=== PATIENT | male | born 1955 | race African-American/Black ===

== ENCOUNTER → 2018-11-12 | Day surgery (SDC) | payer MEDICARE ==
[~2018-11-12] MED LIST: ACETAMINOPHEN650 MG RC; ATORVASTATIN CA20 MG PO; BRILINTA90 MG; FENTANYL CITRATE/PF 100MCG/2 ML INJ ONE; FLOMAX0.4 MG PO; FLUTICASONE PRO16 GM INH; GABAPENTIN300 MG PO; GLIMEPIRIDE2 MG PO; HYOSCYAMINE 0.125 MG TAB ONE; IBUPROFEN200 MG PO; LOSARTAN POTAS100 MG PO; METFORMIN HCL500 MG PO; METOPROLOL SUCC50 MG PO; MIDAZOLAM HCL 2 MG/2 ML VIAL ONE; NIFEDIPINE ER30 M1; PROPOFOL IV EMULSION 10 MG/ML 50 ML VIAL ONE; RANEXA500 MG PO; SPIRIVA18 MCG INH; TESTOSTERO200 MG/1 M PO
--- OUTSIDE RECORDS SUMMARY | 2018-11-12 06:20 | XMS REPORT | Continuity of Care Document ---
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 Name Role Phone [employer] Unavailable Unavailable Problems Problem Status Onset Date Classification Date Reported Comments Source LUMBAR Active 06/02/2018 [facility] UNK Active 05/03/2018 [facility] LUMBAR LAMINOTOMY Active 02/19/2018 [facility] Radiculopathy, lumbar region 01/21/2018 08/05/2018 [facility] DX: M54.16=RADICULOPATHY, LUMBAR REGION Active 12/20/2017 [facility] Tobacco abuse Active Diagnosis 06/13/2018 [facility] HTN , benign Active Diagnosis 10/11/2018 [facility] Dyslipidemia Active Diagnosis 10/11/2018 [facility] Other symptoms involving cardiovascular system Active Diagnosis 06/13/2018 [facility] Coronary artery disease, angina presence unspecified, unspecified vessel or lesion type, unspecified whether [place] or transplanted heart Active Problem 10/11/2018 [facility] S/P angioplasty with stent Active Diagnosis 10/11/2018 [facility] Chest pain, unspecified type Active Diagnosis 06/13/2018 [facility] Preoperative clearance Active Diagnosis 10/11/2018 [facility] Acute bacterial bronchitis Resolved Problem 10[facility]19[facility] Cardiac angina Active Problem 10/19/[facility] Chronic left-sided back pain Active Problem 10/19/2018 [facility] CAD (Confirmed) Active Problem 10/19/2018 [facility] Diabetes Active Problem 10/19/2018 [facility] COPD with chronic bronchitis(Confirmed) Active Problem 10/19/2018 [facility] Hyperlipidemia Active Problem 10/19/2018 [facility] HTN (Confirmed) Active Problem 10/19/2018 [facility] HTN (Confirmed) Active Problem 10/19/2018 [facility] Heart attack1 Resolved Problem 10/19/201805/2017 [facility] Cold Resolved Problem 10/19/2018 [facility] Poor circulation of extremity2 Active Problem 10/19/2018 left leg [facility] Simple obesity Active Problem 10/19/2018 [facility] Spinal stenosis, lumbar region without neurogenic claudication 08/05/2018 [facility] Other intervertebral disc degeneration, lumbar region 08/05/2018 [facility] Fusion of spine, lumbosacral region 08/05/2018 [facility] Medications Medication Details Route Status Patient Instructions Ordering Provider Order Date Source Losartan Potassium 1 tablet Orally Active 50 mg Orally Once a day Sandra 10/09/2018 [facility] Tylenol PO, 0 Refill(s) Active 09/07/2018 [facility] Senokot 2 tab, Route: PO, Dosing Weight 103.227, kg, Daily, Start date: 06/14/18 9:00:00 SLIDE MACHINE TENDER, Duration: 30 day, Stop date: 07/13/18 9:00:00 SLIDE MACHINE TENDER No Longer Active 06/14/2018 [facility] heparin sodium, porcine 2500 UNT/ML Injectable Solution 5,000 unit, Route: SUB-Q, Drug form: INJ, Q12H, Dosing Weight 103.227, kg, Start date: 06/14/18 8:00:00 SLIDE MACHINE TENDER, Duration: 30 day, Stop date: 07/13/18 21:00:00 SLIDE MACHINE TENDER No Longer Active 06/14/2018 [facility] Famotidine 20 MG Oral Tablet [Pepcid] 20 mg, 1 tab, Route: PO, Drug form: TAB, Q12H, Dosing Weight 103.227, kg, Start date: 06/13/18 21:00:00 SLIDE MACHINE TENDER, Duration: 30 day, Stop date: 07/13/18 9:00:00 SLIDE MACHINE TENDER Inactive 06/14/2018 [facility] Docusate Sodium 100 MG Oral Capsule [Colace] 100 mg, 1 cap, Route: PO, BID, Dosing Weight 103.227, kg, Start date: 06/13/18 17:00:00 SLIDE MACHINE TENDER, Duration: 30 day, Stop date: 07/13/18 9:00:00 SLIDE MACHINE TENDER Inactive 06/13/2018 [facility] Acetaminophen 325 MG / Hydrocodone Bitartrate 5 MG Oral Tablet 1 tab, PO, Q4H, PRN Pain, # 60 tab, 0 Refill(s), given to patient Active 06/13/2018 [facility] Zofran 4 mg, Route: IV, Drug form: INJ, Q8H, Dosing Weight 103.227, kg, PRN Nausea, Start date: 06/13/18 13:09:00 SLIDE MACHINE TENDER, Duration: 30 day, Stop date: 07/13/18 13:08:00 SLIDE MACHINE TENDER Inactive 06/13/2018 [facility] magnesium citrate 300 ml, Route: PO, Drug Form: LIQ, Dosing Weight 103.227, kg, ONCE, PRN Constipation, Start date: 06/13/18 13:09:00 SLIDE MACHINE TENDER Inactive 06/13/2018 [facility] Acetaminophen 325 MG / Hydrocodone Bitartrate 5 MG Oral Tablet 1 tab, Route: PO, Drug Form: TAB, Dosing Weight 103.227, kg, Q4H, PRN Pain, Start date: 06/13/18 13:09:00 SLIDE MACHINE TENDER, Duration: 30 day, Stop date: 07/13/18 13:08:00 SLIDE MACHINE TENDER Inactive 06/13/2018 [facility] Dilaudid 0.5 mg, Route: IV, Q3H, Dosing Weight 103.227, kg, PRN Pain, Start date: 06/13/18 13:09:00 SLIDE MACHINE TENDER, Duration: 30 day, Stop date: 07/13/18 13:08:00 SLIDE MACHINE TENDER Inactive 06/13/2018 [facility] Tylenol 650 mg, Route: PO, Drug form: TAB, Q4H, Dosing Weight 103.227, kg, PRN Pain, Start date: 06/13/18 13:09:00 SLIDE MACHINE TENDER, Duration: 30 day, Stop date: 07/13/18 13:08:00 SLIDE MACHINE TENDER Inactive 06/13/2018 [facility] Cefazolin 1 gm, Route: IVPB, Drug form: INJ, Q8H, Dosing Weight 103.227, kg, Start date: 06/13/18 13:09:00 SLIDE MACHINE TENDER, Duration: 3 doses or times, Stop date: 06/14/18 0:00:00 SLIDE MACHINE TENDER, ABX Indication: Surgical Prophylaxis Inactive 06/13/2018 [facility] Sodium Chloride 0.9% IV 1000 mL 1,000 mL, Rate: 75 ml/hr, Infuse over: 13.3 hr, Route: IV, Dosing Weight 103.227 kg, Total Volume: 1,000, Start date: 06/13/18 13:09:00 SLIDE MACHINE TENDER, Duration: 30 day, Stop date: 07/13/18 13:08:00 SLIDE MACHINE TENDER, 2.31, m2 Inactive 06/13/2018 [facility] metoclopramide (ANES) Route: IV, Drug form: INJ, ONCE, Stop date: 06/13/18 12:36:00 SLIDE MACHINE TENDER Inactive 06/13/2018 [facility] Hextend (ANES) 500 mL Route: IV, Drug Form: INJ, Start date: 06/13/18 12:17:00 SLIDE MACHINE TENDER, Stop date: 06/13/18 13:17:00 SLIDE MACHINE TENDER Inactive 06/13/2018 [facility] rocuronium (ANES) Route: IV, Drug form: INJ, ONCE, Stop date: 06/13/18 11:51:00 SLIDE MACHINE TENDER Inactive 06/13/2018 [facility] lidocaine (ANES) Route: IV, Drug form: INJ, ONCE, Stop date: 06/13/18 11:46:00 SLIDE MACHINE TENDER Inactive 06/13/2018 [facility] phenylephrine (ANES) Route: IV, Drug form: INJ, ONCE, Stop date: 06/13/18 11:46:00 SLIDE MACHINE TENDER Inactive 06/13/2018 [facility] propofol (ANES) Route: IV, Drug form: INJ, ONCE, Stop date: 06/13/18 11:46:00 SLIDE MACHINE TENDER Inactive 06/13/2018 [facility] fentaNYL (ANES) Route: IV, Drug form: INJ, ONCE, Stop date: 06/13/18 11:46:00 SLIDE MACHINE TENDER Inactive 06/13/2018 [facility] succinylcholine (ANES) Route: IV, Drug form: INJ, ONCE, Stop date: 06/13/18 11:46:00 SLIDE MACHINE TENDER Inactive 06/13/2018 [facility] ondansetron (ANES) Route: IV, Drug form: INJ, ONCE, Stop date: 06/13/18 11:46:00 SLIDE MACHINE TENDER Inactive 06/13/2018 [facility] midazolam (ANES) Route: IV, Drug form: SOLN, ONCE, Stop date: 06/13/18 11:46:00 SLIDE MACHINE TENDER Inactive 06/13/2018 [facility] acetaminophen (ANES) 10 mg Route: IV, Drug form: INJ, Start date: 06/13/18 11:23:00 SLIDE MACHINE TENDER, Stop date: 06/13/18 12:23:00 SLIDE MACHINE TENDER Inactive 06/13/2018 [facility] ceFAZolin (ANES) 1000 mg Route: IV, Drug form: INJ, Start date: 06/13/18 11:08:00 SLIDE MACHINE TENDER, Stop date: 06/13/18 12:08:00 SLIDE MACHINE TENDER Inactive 06/13/2018 [facility] Lactated Ringers Injection IV (ANES) 1000 mL Route: IV, Total Volume: 1,000, Start date: 06/13/18 10:40:00 SLIDE MACHINE TENDER, Stop date: 06/13/18 11:40:00 SLIDE MACHINE TENDER Inactive 06/13/2018 [facility] Calcium Chloride 0.0014 MEQ/ML / Potassium Chloride 0.004 MEQ/ML / Sodium Chloride 0.103 MEQ/ML / Sodium Lactate 0.028 MEQ/ML Injectable Solution 1,000 mL, Rate: 25 ml/hr, Infuse over: 40 hr, Route: IV, Dosing Weight 103.227 kg, Total Volume: 1,000, Start date: 06/13/18 8:36:00 SLIDE MACHINE TENDER, Duration: 1 day, Stop date: 06/14/18 8:35:00 SLIDE MACHINE TENDER, 2.31, m2 Inactive 06/13/2018 [facility] gabapentin PO, 0 Refill(s) Active 06/05/2018 [facility] Aspirin 81 MG Enteric Coated Tablet 81 mg=1 tab, PO, Daily, still taking-seeing heart doctor tomorrow, # 90 tab, 3 Refill(s) No Longer Active 06/05/2018 [facility] Ramipril PO, Daily, 0 Refill(s) Active 06/05/2018 [facility] Losartan PO, Daily, 0 Refill(s) Active 06/05/2018 [facility] tamsulosin 0.4 mg oral capsule 0.4 mg=1 cap, PO, Daily, # 30 cap, 0 Refill(s) Active 02/06/2018 [facility] 12 HR ranolazine 500 MG Extended Release Tablet [Ranexa] 500 mg=1 tab, PO, BID, # 60 tab, 0 Refill(s) Active 02/06/2018 [facility] ticagrelor 90 mg oral tablet 90 mg=1 tab, PO, BID, # 180 tab, 3 Refill(s) No Longer Active 02/06/2018 [facility] levocetirizine 5 mg oral tablet 5 mg=1 tab, PO, Bedtime, PRN as needed for allergy symptoms, # 30 tab, 0 Refill(s) Active 02/06/2018 [facility] Nitroglycerin 0.4 MG Sublingual Tablet 0.4 mg=1 tab, SL, Q5Min, PRN Chest pain, Give up to 3 doses. Call 911 if pain persists., # 100 tab, 0 Refill(s) Active 02/06/2018 [facility] metoprolol succinate 50 mg oral capsule, extended release 50 mg=1 cap, PO, Daily, 0 Refill(s) Active 02/06/2018 [facility] Nifedipine 10 MG Oral Capsule 10 mg=1 cap, PO, Daily, 0 Refill(s) Active 02/06/2018 [facility] atorvastatin 40 mg oral tablet 40 mg=1 tab, PO, Bedtime, # 30 tab, 0 Refill(s) Active 02/06/2018 [facility] metFORMIN 1000 mg oral tablet, extended release 1,000 mg=1 tab, PO, BID, # 60 tab, 0 Refill(s) Active 02/06/2018 [facility] Nitroglycerin 1 tablet 5 mins apart 3 max then call 911 Sublingual Active 0.4 MG Sublingual as needed Sandra 06/30/2017 [facility] Plavix 1 tablet Orally Active 75 MG Orally Once a day [facility] Lipitor 1 tablet Orally Active 40 MG Orally Once a day [facility] Lisinopril 1 tablet Orally Active 10 MG Orally Once a day [facility] Aspirin 1 tablet Orally Active 81 MG Orally Once a day [facility] Metoprolol Succinate ER 1 tablet Orally Active 25 MG Orally Once a day [facility] Metoprolol Succinate ER 1 tablet Orally Active 50 MG Orally Once a day [facility] Ranolazine 1 tablet NA Active 500 mg every 12 hr [facility] Breo Ellipta 1 puff Inhalation Active 100-25 MCG/INH Inhalation Once a day [facility] Ticagrelor 1 tablet Orally Active 90 MG Orally Twice a day [facility] Atorvastatin Calcium 1 tablet Orally Active 40 MG Orally Once a day [facility] NIFEdipine not defined NA Active 30 mg daily [facility] Ticagrelor 1 tablet Orally Active 90 MG Orally Twice a day [facility] Metformin HCl 1 tablet with a meal Orally Active 1000 mg Orally twice a day (bid) [facility] Gabapentin 1 capsule Orally Active 100 MG Orally Three times a day [facility] Losartan Potassium 1 tablet Orally Active 25 MG Orally Once a day [facility] Allergies, Adverse Reactions, Alerts Substance Category Reaction Severity Reaction type Status Date Reported Comments Source N.K.D.A. Adverse Reaction Info Not Available Adverse Reaction Active 11/22/2017 [facility] Lisonpril. Adverse Reaction Info Not Available Adverse Reaction Active 10/09/2018 [facility] lisinopril Assertion Drug allergy Active [facility] Immunizations No Data Provided for This Section Results Order Name Results Value Reference Range Date Interpretation Comments Source SPECIAL CHEMISTRY Hgb A1C 8.7 <=5.6 % 06/05/2018 [facility] BLOOD BANK RESULTS Antibody Scrn Negative (06/05/18 10:32 AM) 06/05/2018 [facility] BLOOD BANK RESULTS ABO/Rh O POS 06/05/2018 [facility] CHEM PANEL A/G Ratio 1.2 0.7 - 1.6 06/05/2018 [facility] CHEM PANEL Globulin 3.4 2.7 - 4.2 06/05/2018 [facility] CHEM PANEL AGAP 12.8 10.0 - 20.0 06/05/2018 [facility] CHEM PANEL B/C Ratio 11 6 - 25 06/05/2018 [facility] CHEM PANEL eGFR 76 06/05/2018 Result Comment: The eGFR is calculated using the CKD-EPI formula. In most young, healthy individuals the eGFR will be >90 mL/min/1.73m2. The eGFR declines with age. An eGFR of 60-89 may be normal in some populations, particularly the elderly, for whom the CKD-EPI formula has not been extensively validated. Use of the eGFR is not recommended in the following populations:

Individuals with unstable creatinine concentrations, including patients and those with serious co-morbid conditions.

Patients with extremes in muscle mass or diet.

The data above are obtained from the National Kidney Disease Education Program (NKDEP) which additionally recommends that when the eGFR is used in patients with extremes of body mass index for purposes of drug dosing, the eGFR should be multiplied by the estimated BMI. [facility] CHEM PANEL Bili Total 0.8 0.2 - 1.3 06/05/2018 [facility] CHEM PANEL AST 11 0 - 37 06/05/2018 [facility] CHEM PANEL Alk Phos 72 39 - 136 06/05/2018 [facility] CHEM PANEL ALT 20 0 - 65 06/05/2018 [facility] CHEM PANEL Total Protein 7.4 6.4 - 8.4 06/05/2018 [facility] CHEM PANEL Albumin Lvl 4.0 3.5 - 5.0 06/05/2018 [facility] CHEM PANEL Calcium Lvl 8.8 8.5 - 10.5 06/05/2018 [facility] CHEM PANEL CO2 24 24 - 32 06/05/2018 [facility] CHEM PANEL Potassium Lvl 3.8 3.5 - 5.1 06/05/2018 [facility] CHEM PANEL Chloride Lvl 109 95 - 109 06/05/2018 [facility] CHEM PANEL Sodium Lvl 142 135 - 145 06/05/2018 [facility] CHEM PANEL Creatinine Lvl 1.16 0.50 - 1.40 06/05/2018 [facility] CHEM PANEL Glucose Lvl 109 70 - 99 06/05/2018 [facility] CHEM PANEL BUN 13 7 - 22 06/05/2018 [facility] HEMATOLOGY Neutrophils # 5.5 1.5 - 8.1 06/05/2018 [facility] HEMATOLOGY Basophils 0.5 0.0 - 1.0 06/05/2018 [facility] HEMATOLOGY Eosinophils 1.5 0.0 - 4.0 06/05/2018 [facility] HEMATOLOGY Monocytes # 0.7 0.0 - 0.8 06/05/2018 [facility] HEMATOLOGY Lymphocytes # 2.1 1.0 - 5.5 06/05/2018 [facility] HEMATOLOGY Monocytes 8.2 2.0 - 12.0 06/05/2018 [facility] HEMATOLOGY Eosinophils # 0.1 0.0 - 0.5 06/05/2018 [facility] HEMATOLOGY Segs 65.2 45.0 - 75.0 06/05/2018 [facility] HEMATOLOGY Lymphocytes 24.6 20.0 - 40.0 06/05/2018 [facility] HEMATOLOGY PT 13.1 12.0 - 14.7 06/05/2018 [facility] HEMATOLOGY PTT 27.1 22.9 - 35.8 06/05/2018 [facility] HEMATOLOGY INR 1.01 0.85 - 1.17 06/05/2018 [facility] HEMATOLOGY Platelet 174 133 - 450 06/05/2018 [facility] HEMATOLOGY RDW 15.2 11.5 - 14.5 06/05/2018 [facility] HEMATOLOGY MPV 9.5 7.4 - 10.4 06/05/2018 [facility] HEMATOLOGY MCHC 33.5 32.0 - 36.0 06/05/2018 [facility] HEMATOLOGY MCH 28.7 27.0 - 31.0 06/05/2018 [facility] HEMATOLOGY MCV 85.7 80.0 - 94.0 06/05/2018 [facility] HEMATOLOGY Hct 36.5 42.0 - 54.0 06/05/2018 [facility] HEMATOLOGY Hgb 12.2 14.0 - 18.0 06/05/2018 [facility] HEMATOLOGY RBC 4.26 4.70 - 6.10 06/05/2018 [facility] HEMATOLOGY WBC 8.4 3.7 - 10.4 06/05/2018 [facility] Pathology Reports No Data Provided for This Section Diagnostic Reports Report Value Date Source Chest 2 views DX Clinical Indication: Coughing - preop exam Comparison: None FINDINGS: PA and lateral views the chest are submitted for interpretation. The lungs are clear and there are no effusions. There is no visible pneumothorax. The cardiomediastinal contours are within normal limits. There are no clinically significant osseous abnormalities noted. IMPRESSION: 1. No radiographic evidence of acute cardiopulmonary process. SL: [id number] 06/05/2018 [facility] Spine lumbar wo contrast MRI Study: Spine lumbar wo contrast MRI 01/16/2018 10:31 AM CDT Patient Name: YASMANY DEUTSCH MR: [id number] : 1955; Age: 62 years y/o Male Ordering Physician: Melly Miller MD Clinical Indication: - M54.16 Radiculpathy, lumbar region Comparison: None TECHNIQUE: Multiplanar T1, T2, and STIR weighted noncontrast MRI of the lumbar spine was performed on the 1.5 [place] magnet. FINDINGS: ALIGNMENT AND GENERAL ASSESSMENT: * Five lumbar type vertebral bodies are assumed for purpose of this dictation with conus medullaris termination above T12. * Sacralization of the L5 vertebral bodies noted. * STIR hyperintensity seen within the right L4 vertebral body and superior right L5 endplate. DISC SPACES: L1-L2: No significant disc protrusion, spinal canal narrowing, or neural foraminal narrowing. L2-L3: Mildly degenerated disc. Symmetric disc bulge and ligamentum flavum buckling without foraminal or canal stenosis. L3-L4: Mildly degenerated disc. Symmetric disc bulge and ligamentum flavum buckling with mild bilateral foraminal stenosis and moderate canal stenosis. Schmorl's node at the superior L3 endplate. L4-L5: Mildly degenerated disc. Symmetric disc bulge and ligamentum flavum buckling with severe canal stenosis and moderate bilateral foraminal stenosis L5-S1: No significant disc protrusion, spinal canal narrowing, or neural foraminal narrowing. IMPRESSION: 1. Severe degenerative canal stenosis and moderate bilateral foraminal stenosis at L4-L5. 2. Moderate degenerative canal stenosis and mild bilateral foraminal stenosis at L3-L4. 3. Edema within the L4 vertebral body, favored to be degenerative in nature. 4. Transitional vertebra at the lumbosacral junction. SL: [id number] 01/16/2018 [facility] Consultation Notes No Data Provided for This Section Discharge Summaries No Data Provided for This Section History and Physicals No Data Provided for This Section Vital Signs Vital Sign Value Date Comments Source Weight 226.8 10/09/2018 [facility] Heart Rate 74 10/09/2018 [facility] Diastolic (mm Hg) 82 10/09/2018 [facility] Systolic (mm Hg) 154 10/09/2018 [facility] Weight 100.909 09/07/2018 [facility] BMI Calculated 30.17 09/07/2018 [facility] Height 182.88 cm 09/07/2018 [facility] Systolic (mm Hg) 144 09/07/2018 [facility] Diastolic (mm Hg) 85 09/07/2018 [facility] Heart Rate 86 09/07/2018 [facility] Heart Rate 66 08/03/2018 [facility] Temperature Oral (F) 97.8 F 08/03/2018 [facility] Systolic (mm Hg) 117 08/03/2018 [facility] Diastolic (mm Hg) 75 08/03/2018 [facility] BMI Calculated 29.9 08/03/2018 [facility] Height 182.88 cm 08/03/2018 [facility] Weight 100 08/03/2018 [facility] BMI Calculated 29.63 07/03/2018 [facility] Weight 99.091 07/03/2018 [facility] Height 182.88 cm 07/03/2018 [facility] Temperature Oral (F) 98.0 F 07/03/2018 [facility] Heart Rate 87 07/03/2018 [facility] Systolic (mm Hg) 148 07/03/2018 [facility] Diastolic (mm Hg) 84 07/03/2018 [facility] Systolic (mm Hg) 135 06/13/2018 [facility] Diastolic (mm Hg) 67 06/13/2018 [facility] Respitory Rate 16 06/13/2018 [facility] Systolic (mm Hg) 123 06/13/2018 [facility] Diastolic (mm Hg) 69 06/13/2018 [facility] Respitory Rate 13 06/13/2018 [facility] Systolic (mm Hg) 123 06/13/2018 [facility] Diastolic (mm Hg) 69 06/13/2018 [facility] Respitory Rate 14 06/13/2018 [facility] Weight 227 06/11/2018 [facility] Heart Rate 73 06/11/2018 [facility] Diastolic (mm Hg) 79 06/11/2018 [facility] Systolic (mm Hg) 139 06/11/2018 [facility] Heart Rate 84 06/05/2018 [facility] Temperature Oral (F) 98.2 F 06/05/2018 [facility] BMI Calculated 30.86 06/05/2018 [facility] Weight 103.227 06/05/2018 [facility] Height 182.88 cm 06/05/2018 [facility] Weight 236.2 02/19/2018 [facility] Heart Rate 72 02/19/2018 [facility] Diastolic (mm Hg) 82 02/19/2018 [facility] Systolic (mm Hg) 136 02/19/2018 [facility] Height 182.88 cm 02/06/2018 [facility] BMI Calculated 31.74 02/06/2018 [facility] Weight 106.165 02/06/2018 [facility] Temperature Oral (F) 97.7 F 02/06/2018 [facility] Heart Rate 103 02/06/2018 [facility] Systolic (mm Hg) 122 02/06/2018 [facility] Diastolic (mm Hg) 81 02/06/2018 [facility] Weight 233 11/22/2017 [facility] Heart Rate 82 11/22/2017 [facility] Diastolic (mm Hg) 78 11/22/2017 [facility] Systolic (mm Hg) 132 11/22/2017 [facility] Weight 180 06/30/2017 [facility] Heart Rate 88 06/30/2017 [facility] Diastolic (mm Hg) 65 06/30/2017 [facility] Systolic (mm Hg) 143 06/30/2017 [facility] Weight 175 03/30/2017 [facility] Heart Rate 98 03/30/2017 [facility] Diastolic (mm Hg) 80 03/30/2017 [facility] Systolic (mm Hg) 150 03/30/2017 [facility] Encounters Location Location Details Encounter Type Encounter Number Reason For Visit Attending Provider ADM Date DC Date Status Source [facility] Outpatient [id number] Melly Miller 01/16/2018 01/17/2018 [facility] Phone Message [id number] 01/22/2018 01/24/2018 [facility] [id number] SHON BUSHIEH 02/06/2018 [facility] Outpatient [id number] Shon [facility] 02/06/2018 02/07/2018 [facility] Phone Message [id number] 02/26/2018 02/28/2018 [facility] [id number] Shon Crowderh 02/26/2018 02/26/2018 [facility] Outpatient [id number] SHON [facility] 03/05/2018 [facility] Pre[facility]Reg [id number] Shon Bushieh 03/05/2018 03/05/2018 [facility] Phone Message [id number] 03/30/2018 04/01/2018 [facility] Day Surgery [id number] Shon [facility] 06/13/2018 06/13/2018 [facility] Outpatient [id number] SHON [facility] 06/13/2018 [facility] Phone Message [id number] 06/28/2018 06/30/2018 [facility] Phone Message [id number] 06/28/2018 06/30/2018 [facility] [id number] TIGIST BLEVINS 07/03/2018 [facility] Outpatient [id number] Shon [facility] 07/03/2018 07/04/2018 [facility] [id number] BOSE 08/03/2018 [facility] Outpatient [id number] Shon [facility] 08/03/2018 08/04/2018 [facility] [id number] RAMIREZ 09/07/[address] [facility] [id number] Pepito English 09/07/2018 09/08/2018 [facility] Procedures Procedure Code Date Perfomer Comments Source Cardiac catheterization 84026429 [facility] Repair of ankle [id number] [facility] Cardiac catheterization [id number] [facility] Repair of ankle [id number] [facility] Assessment and Plan Assessment and Plan Date Source Extracted from:Title: Clinical Document Author: Shon Caldera MD Date: 06/13/18 Neurosurgery Discharge Summary Admit Date: 06/13/2018 Discharge Date: 06/13/2018 Diagnosis: LEFT L3-L4, L4-L5 lateral recess stenosis Procedure: LEFT L3-L4, L4-L5 laminotomy Surgeon: Werner Hospital Course: Patient admitted, underwent above procedure, tolerated well. Ambulated, urinated, tolerated oral POs, safe to discharge home in stable condition PE: Preop AFVSS IPs Q G AT [facility] R 5 5 5 5 5 L 4 4+ 5 4- 4- Postop AFVSS IPs Q G AT [facility] R 5 5 5 5 5 L 4 4+ 5 4- 4- c/d/i PLAN: Follow-up in [address] Caldera at [phone] 06/13/2018 [facility] Plan of Care No Data Provided for This Section Social History Social History Date Source Social History TypeResponse Substance Abuse Use: None. Alcohol Current, Frequency: 1-2 times per month. Smoking Status Former smoker; Type: Cigarettes; Ready to change: No; Concerns about tobacco use in household: No; Exposure to Tobacco Smoke None; Cigarette Smoking Last 365 Days No; Reg Smoking Cessation Counseling No1 entered on: 09/07/18 1Patient states he stopped smoking 05/201702/06/2018 [facility] Social History TypeResponse Substance Abuse Use: None. Alcohol Current, Frequency: 1-2 times per month. Smoking Status Former smoker; Type: Cigarettes; Ready to change: No; Concerns about tobacco use in household: No; Exposure to Tobacco Smoke None; Cigarette Smoking Last 365 Days No; Reg Smoking Cessation Counseling No1 entered on: 09/07/18 1Patient states he stopped smoking 05/201702/06/2018 [facility] Family History No Data Provided for This Section Advance Directives No Data Provided for This Section Functional Status No Data Provided for This Section
--- OUTSIDE RECORDS SUMMARY | 2018-11-12 06:20 | XMS REPORT | Clinical Summary ---
Author Author KAYDEN [facility] Address Unknown Phone Unavailable Care Team Providers Care Bread Racker Name Role Phone Sharpless PCP Allergies No Known Allergies Medications End Date Status Medication Sig Dispensed Refills Start Date Active lisinopril Take 10 mg by 0 (PRINIVIL,ZESTRIL) 5 MG mouth daily . tablet Active NIFEdipine (ADALAT CC) 30 Take 30 mg by 0 MG 24 hr tablet mouth daily. Active atorvastatin (LIPITOR) 40 Take 40 mg by 0 MG tablet mouth daily. Active metoprolol (TOPROL-XL) 50 Take 50 mg by 0 MG 24 hr tablet mouth daily. Active FLUTICASONE/VILANTEROL Inhale by 0 (BREO ELLIPTA INHL) mouth via inhaler. Active ticagrelor (BRILINTA) 90 Take 1 tablet 180 tablet 1 06/11/201 mg Tab tablet (90 mg total) 8 by mouth 2 (two) times daily. 06/11/2018 ranolazine (RANEXA) 500 Take 1 tablet 180 tablet 3 06/11/201 MG 12 hr tablet (500 mg 8 total) by mouth 2 (two) times daily. Active Problems Problem Noted Date ACS (acute coronary syndrome) 06/09/2017 Social History Date Tobacco Use Types Packs/Day Years Used Current Every Day Smoker 1 Alcohol Use Drinks/Week oz/Week Comments Yes 2-3 times per week Sex Assigned at Date Recorded Not on file Industry Job Start Date Occupation Not on file Not on file Not on file Travel End Travel History Travel Start No recent travel history available. Last Filed Vital Signs Not on file Plan of Treatment Not on file Results Not on fileafter 11/11/2017 Insurance Payer Benefit Subscriber ID Type Phone Address Plan / Group AETNA - MEDICARE MGD CARE AETNA xxxxxxxx [facility] [phone] [address] [place] [address] HMO POS Advance Directives For more information, please contact: [address] [address] Date Inactivated Comments Code Status Date Activated 06/11/2017 6:01 PM Full Code 06/09/2017 5:05 PM This code status was determined by: Patient
--- OUTSIDE RECORDS SUMMARY | 2018-11-12 06:21 | XMS REPORT ---
Author Author Melany Flores Organization [employer] Address Unknown Phone Unavailable Care Team Providers Care Field Support Technician Name Role Phone Melany Flores CP Unavailable Allergies, Adverse Reactions, Alerts Substance Reaction Event Type N.K.D.A. Info Not Available Non Drug Allergy Problems Problem Type Condition Code Onset Dates Condition Status Assessment Tobacco abuse Z72.0 Active Assessment HTN (hypertension), benign I10 Active Assessment Dyslipidemia E78.5 Active Assessment Other symptoms involving cardiovascular system R09.89 Active Problem Coronary artery disease, angina presence unspecified, unspecified vessel or lesion type, unspecified whether [place] or transplanted heart I25.10 Active Problem HTN (hypertension), benign I10 Active Problem Dyslipidemia E78.5 Active Assessment Coronary artery disease, angina presence unspecified, unspecified vessel or lesion type, unspecified whether [place] or transplanted heart I25.10 Active Assessment S/P angioplasty with stent Z95.9 Active Problem S/P angioplasty with stent Z95.9 Active Assessment Chest pain, unspecified type R07.9 Active Medications Medication Code System Code Instructions Start Date End Date Status Dosage Metoprolol Succinate ER ND 68011795469 50 MG Orally Once a day Active 1 tablet Lipitor ND 49393850190 40 MG Orally Once a day Active 1 tablet Lisinopril ND 63134052207 10 MG Orally Once a day Active 1 tablet Plavix ND 14738504286 75 MG Orally Once a day Active 1 tablet Aspirin ND 50109509296 81 MG Orally Once a day Active 1 tablet Vital Signs Date/Time: Mar 30, 2017 BMI 23.73 Index Weight 175 lbs Height 6 ft 0 in in Cardiac Monitoring Heart Rate 98 /min Blood Pressure Diastolic 80 mm Hg Blood Pressure Systolic 150 mm Hg Results No Known Results Summary Purpose [employer] Submission
--- OUTSIDE RECORDS SUMMARY | 2018-11-12 06:21 | XMS REPORT ---
Author Author Melany Flores Organization [employer] Address Unknown Phone Unavailable Care Team Providers Care Retail Pharmacy Manager Name Role Phone Melany Flores CP Unavailable Allergies No Known Allergies Problems Problem Type Condition Code Onset Dates Condition Status Assessment Tobacco abuse Z72.0 Active Assessment HTN (hypertension), benign I10 Active Assessment Dyslipidemia E78.5 Active Assessment Other symptoms involving cardiovascular system R09.89 Active Problem Coronary artery disease, angina presence unspecified, unspecified vessel or lesion type, unspecified whether [place] or transplanted heart I25.10 Active Problem HTN (hypertension), benign I10 Active Problem Dyslipidemia E78.5 Active Assessment Coronary artery disease, angina presence unspecified, unspecified vessel or lesion type, unspecified whether [place] or transplanted heart I25.10 Active Assessment S/P angioplasty with stent Z95.9 Active Problem S/P angioplasty with stent Z95.9 Active Assessment Chest pain, unspecified type R07.9 Active Medications Medication Code System Code Instructions Start Date End Date Status Dosage Plavix ND 42310959461 75 MG Orally Once a day Active 1 tablet Lipitor ND 77811703267 40 MG Orally Once a day Active 1 tablet Lisinopril ND 84674939732 10 MG Orally Once a day Active 1 tablet Aspirin ND 08926547452 81 MG Orally Once a day Active 1 tablet Metoprolol Succinate ER ND 81404298661 25 MG Orally Once a day Active 1 tablet Results No Known Results Summary Purpose [employer] Submission
--- OUTSIDE RECORDS SUMMARY | 2018-11-12 06:21 | XMS REPORT ---
Author Author Melany Flores Organization [employer] Address Unknown Phone Unavailable Care Team Providers Care Bindery Technician Name Role Phone Melany Flores CP Unavailable Allergies No Known Allergies Problems Problem Type Condition Code Onset Dates Condition Status Problem Coronary artery disease, angina presence unspecified, unspecified vessel or lesion type, unspecified whether [place] or transplanted heart I25.10 Active Problem HTN (hypertension), benign I10 Active Problem Dyslipidemia E78.5 Active Problem S/P angioplasty with stent Z95.9 Active Medications Medication Code System Code Instructions Start Date End Date Status Dosage Metoprolol Succinate ER [facility]NOTE 2] 37236345467 50 MG Orally Once a day Active 1 tablet Results No Known Results Summary Purpose [employer] Submission
--- OUTSIDE RECORDS SUMMARY | 2018-11-12 06:21 | XMS REPORT ---
Author Author Melany Flores Organization [employer] Address Unknown Phone Unavailable Care Team Providers Care Weigher Operator Name Role Phone Melany Flores CP Unavailable [...] unspecified vessel or lesion type, unspecified whether [place] or transplanted heart I25.10 Active Problem HTN (hypertension), benign I10 Active Problem Dyslipidemia E78.5 Active Assessment Coronary artery disease, angina presence unspecified, unspecified vessel or lesion type, unspecified whether [place] or transplanted heart I25.10 Active Assessment S/P angioplasty with stent Z95.9 Active Problem S/P angioplasty with stent Z95.9 Active Assessment Chest pain, unspecified type R07.9 Active Medications Medication Code System Code Instructions Start Date End Date Status Dosage NIFEdipine [facility] [address]-18 30 mg daily Active not defined Nitroglycerin [facility] 55412385709 0.4 MG Sublingual as needed Jun 30, 2017 Active 1 tablet 5 mins apart 3 max then call 911 Lisinopril [facility] 26515050676 10 MG Orally Once a day Active 1 tablet Aspirin ND 22870003071 81 MG Orally Once a day Active 1 tablet Atorvastatin Calcium ND 88836493575 40 MG Orally Once a day Active 1 tablet Breo Ellipta [facility] 11944968059 100-25 MCG/INH Inhalation Once a day Active 1 puff Metoprolol Succinate ER ND 94778035506 50 MG Orally Once a day Active 1 tablet Plavix ND 67124657864 75 MG Orally Once a day Active 1 tablet Lipitor ND 08114366942 40 MG Orally Once a day Active 1 tablet Ranolazine ND 0 500 mg every 12 hr Active 1 tablet Ticagrelor [facility] [address]-65 90 MG Orally Twice a day Active 1 tablet Vital Signs Date/Time: November 22, 2017 BMI 31.60 Index Weight 233 lbs Height 6 ft 0 in in Cardiac Monitoring Heart Rate 82 /min Blood Pressure Diastolic 78 mm Hg Blood Pressure Systolic 132 mm Hg Results No Known Results Summary Purpose [employer] Submission
--- OUTSIDE RECORDS SUMMARY | 2018-11-12 06:21 | XMS REPORT ---
Author Author Melany Flores Organization [employer] Address Unknown Phone Unavailable Care Team Providers Care Chief Deputy Clerk/Bailiff Name Role Phone Melany Flores CP Unavailable Allergies No Known Allergies Problems Problem Type Condition Code Onset Dates Condition Status Assessment Tobacco abuse Z72.0 Active Assessment HTN (hypertension), benign I10 Active Assessment Dyslipidemia E78.5 Active Assessment Other symptoms involving cardiovascular system R09.89 Active Problem Coronary artery disease, angina presence unspecified, unspecified vessel or lesion type, unspecified whether [place] or transplanted heart I25.10 Active Problem HTN (hypertension), benign I10 Active Problem Dyslipidemia E78.5 Active Assessment Coronary artery disease, angina presence unspecified, unspecified vessel or lesion type, unspecified whether [place] or transplanted heart I25.10 Active Assessment S/P angioplasty with stent Z95.9 Active Problem S/P angioplasty with stent Z95.9 Active Assessment Chest pain, unspecified type R07.9 Active Medications No Known Medications Results No Known Results Summary Purpose [employer] Submission
--- OUTSIDE RECORDS SUMMARY | 2018-11-12 06:21 | XMS REPORT ---
Author Author Melany Flores Organization [employer] Address Unknown Phone Unavailable Care Team Providers Care Database Management Specialist Name Role Phone Melany Flores CP Unavailable [...] unspecified vessel or lesion type, unspecified whether [place] or transplanted heart I25.10 Active Problem HTN (hypertension), benign I10 Active Problem Dyslipidemia E78.5 Active Assessment Coronary artery disease, angina presence unspecified, unspecified vessel or lesion type, unspecified whether [place] or transplanted heart I25.10 Active Assessment S/P angioplasty with stent Z95.9 Active Problem S/P angioplasty with stent Z95.9 Active Assessment Chest pain, unspecified type R07.9 Active Medications Medication Code System Code Instructions Start Date End Date Status Dosage Plavix [facility] 12842582474 75 MG Orally Once a day Active 1 tablet Nitroglycerin [facility] 75095791268 0.4 MG Sublingual as needed Jun 30, 2017 Active 1 tablet 5 mins apart 3 max then call 911 Ranolazine [facility] 0 500 mg every 12 hr Active 1 tablet Breo Ellipta [facility] 62967800241 100-25 MCG/INH Inhalation Once a day Active 1 puff Lisinopril ND 64413561812 10 MG Orally Once a day Active 1 tablet Lipitor ND 49969634711 40 MG Orally Once a day Active 1 tablet Ticagrelor [facility] [address]-26 90 MG Orally Twice a day Active 1 tablet Atorvastatin Calcium ND 79762400388 40 MG Orally Once a day Active 1 tablet NIFEdipine [facility] [address]-95 30 mg daily Active not defined Aspirin ND 72095546969 81 MG Orally Once a day Active 1 tablet Metoprolol Succinate ER [facility] 28661823896 50 MG Orally Once a day Active 1 tablet Vital Signs Date/Time: Jun 30, 2017 BMI 24.41 Index Weight 180 lbs Height 6 ft 0 in in Cardiac Monitoring Heart Rate 88 /min Blood Pressure Diastolic 65 mm Hg Blood Pressure Systolic 143 mm Hg Results No Known Results Summary Purpose [employer] Submission
--- OUTSIDE RECORDS SUMMARY | 2018-11-12 06:21 | XMS REPORT ---
Author Author Melany Flores Organization [employer] Address Unknown Phone Unavailable Care Team Providers Care Cdl Truck Driver Name Role Phone Melany Flores CP Unavailable Allergies, Adverse Reactions, Alerts Substance Reaction Event Type Lisonpril. Info Not Available Non Drug Allergy Problems Problem Type Condition Code Onset Dates Condition Status Assessment Preoperative clearance Z01.818 Active Assessment HTN (hypertension), benign I10 Active Assessment Dyslipidemia E78.5 Active Problem Coronary artery disease, angina presence unspecified, unspecified vessel or lesion type, unspecified whether [place] or transplanted heart I25.10 Active Problem HTN (hypertension), benign I10 Active Problem Dyslipidemia E78.5 Active Assessment Coronary artery disease, angina presence unspecified, unspecified vessel or lesion type, unspecified whether [place] or transplanted heart I25.10 Active Assessment S/P angioplasty with stent Z95.9 Active Problem S/P angioplasty with stent Z95.9 Active Medications Medication Code System Code Instructions Start Date End Date Status Dosage Losartan Potassium [facility] 45216109549 50 mg Orally Once a day October 09, 2018 Active 1 tablet Metoprolol Succinate ER ND 94187967371 50 MG Orally Once a day Active 1 tablet Atorvastatin Calcium ND 67329939078 40 MG Orally Once a day Active 1 tablet Metformin HCl ND 85978196271 1000 mg Orally twice a day (bid) Active 1 tablet with a meal NIFEdipine [facility] [address]-41 30 mg daily Active not defined Losartan Potassium ND 76176714999 25 MG Orally Once a day Active 1 tablet Nitroglycerin [facility] 65455825803 0.4 MG Sublingual as needed Jun 30, 2017 Active 1 tablet 5 mins apart 3 max then call 911 Aspirin ND 64886106601 81 MG Orally Once a day Active 1 tablet Ranolazine ND 0 500 mg every 12 hr Active 1 tablet Vital Signs Date/Time: October 09, 2018 BMI 30.76 Index Weight 226.8 lbs Height 6 ft 0 in in Cardiac Monitoring Heart Rate 74 /min Blood Pressure Diastolic 82 mm Hg Blood Pressure Systolic 154 mm Hg Results No Known Results Summary Purpose [employer]Works Submission
--- OUTSIDE RECORDS SUMMARY | 2018-11-12 06:21 | XMS REPORT ---
Author Author Melany Flores Organization [employer] Address Unknown Phone Unavailable Care Team Providers Care Thermit Welding Machine Operator Name Role Phone Melany Flores CP Unavailable Allergies No Known Allergies Problems Problem Type Condition Code Onset Dates Condition Status Problem Coronary artery disease, angina presence unspecified, unspecified vessel or lesion type, unspecified whether [place] or transplanted heart I25.10 Active Problem HTN (hypertension), benign I10 Active Problem Dyslipidemia E78.5 Active Problem S/P angioplasty with stent Z95.9 Active Medications Medication Code System Code Instructions Start Date End Date Status Dosage Atorvastatin Calcium [facility] 81636256841 40 MG Orally Once a day Active 1 tablet Results No Known Results Summary Purpose [employer] Submission
--- OUTSIDE RECORDS SUMMARY | 2018-11-12 06:21 | XMS REPORT ---
Author Author Melany Flores Organization [employer] Address Unknown Phone Unavailable Care Team Providers Care Sagger Maker Name Role Phone Melany Flores CP Unavailable Allergies No Known Allergies Problems Problem Type Condition Code Onset Dates Condition Status Assessment Tobacco abuse Z72.0 Active Assessment HTN (hypertension), benign I10 Active Assessment Dyslipidemia E78.5 Active Assessment Other symptoms involving cardiovascular system R09.89 Active Problem Coronary artery disease, angina presence unspecified, unspecified vessel or lesion type, unspecified whether [place] or transplanted heart I25.10 Active Problem HTN (hypertension), benign I10 Active Problem Dyslipidemia E78.5 Active Assessment Coronary artery disease, angina presence unspecified, unspecified vessel or lesion type, unspecified whether [place] or transplanted heart I25.10 Active Assessment S/P angioplasty with stent Z95.9 Active Problem S/P angioplasty with stent Z95.9 Active Assessment Chest pain, unspecified type R07.9 Active Medications Medication Code System Code Instructions Start Date End Date Status Dosage Lipitor ND 76101544236 40 MG Orally Once a day Active 1 tablet Plavix ND 37143945606 75 MG Orally Once a day Active 1 tablet Aspirin ND 24712711723 81 MG Orally Once a day Active 1 tablet Metoprolol Succinate ER ND 85357383545 25 MG Orally Once a day Active 1 tablet Lisinopril ND 49934154261 10 MG Orally Once a day Active 1 tablet Results No Known Results Summary Purpose [employer]Clinical[employer] Submission
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
--- OUTSIDE RECORDS SUMMARY | 2018-11-12 06:22 | XMS REPORT | Summary of Care ---
Author Author MS[facility] Organization [facility] Address Unknown Phone Unavailable Encounter HQ Matthewr_lizzette(FIN) [id number] Date(s): 02/26/18 - 02/27/18 [facility] [address] [place] [address]- [phone] Vital Signs No data available for this [...]
--- OUTSIDE RECORDS SUMMARY | 2018-11-12 06:22 | XMS REPORT | Summary of Care ---
Author Author [facility] Neuro[facility] Organization [facility] Address Unknown Phone Unavailable Encounter BEN Bradford(FIN) [id number] Date(s): 07/03/18 - 07/03/18 [facility] Neurosurgery [facility] [address], [address] [place] [phone] Discharge Disposition: Home or Self Care Attending Physician: Shon Caldera MD Referring Physician: Shon Caldera MD Vital Signs Most recent to 1 oldest [Reference Range]: Height 182.88 cm (07/03/18 1:15 PM) Temperature Oral 98.0 DegF [96.4-99.1 DegF] (07/03/18 1:15 PM) Blood Pressure 148/84 mmHg [90-140/60-90 mmHg] *HI* (07/03/18 1:15 PM) Peripheral Pulse 87 bpm Rate [60-100 bpm] (07/03/18 1:15 PM) Weight 99.091 kg (07/03/18 1:15 PM) Body Mass Index 29.63 m2 (07/03/18 1:15 PM) Problem List Condition Effective Dates Status [...] Reaction Severity Status lisinopril Active Medications No Known Medications Results No data available for this section [...] Reg Smoking Cessation Counseling No1 entered on: 07/03/18 1Patient states he stopped smoking 05/2017 Assessment and Plan No data available for this section
--- OUTSIDE RECORDS SUMMARY | 2018-11-12 06:22 | XMS REPORT ---
Author Author Melany Flores Organization [employer] Address Unknown Phone Unavailable Care Team Providers Care Cleaning And Washing Equipment Operator Name Role Phone Melany Flores CP Unavailable Allergies No Known Allergies Problems Problem Type Condition Code Onset Dates Condition Status Assessment Dyslipidemia E78.5 Active Assessment S/P angioplasty with stent Z95.9 Active Assessment HTN (hypertension), benign I10 Active Assessment Preoperative clearance Z01.818 Active Assessment Other symptoms involving cardiovascular system R09.89 Active Assessment Tobacco abuse Z72.0 Active Problem Coronary artery disease, angina presence unspecified, unspecified vessel or lesion type, unspecified whether [place] or transplanted heart I25.10 Active Problem HTN (hypertension), benign I10 Active Problem Dyslipidemia E78.5 Active Assessment Chest pain, unspecified type R07.9 Active Assessment Coronary artery disease, angina presence unspecified, unspecified vessel or lesion type, unspecified whether [place] or transplanted heart I25.10 Active Problem S/P angioplasty with stent Z95.9 Active Medications Medication Code System Code Instructions Start Date End Date Status Dosage NIFEdipine [facility] [address]-79 30 mg daily Active not defined Metoprolol Succinate ER ND 25649901037 50 MG Orally Once a day Active 1 tablet Ranolazine ND 0 500 mg every 12 hr Active 1 tablet Aspirin ND 63620804173 81 MG Orally Once a day Active 1 tablet Metformin HCl ND 28808369216 1000 mg Orally twice a day (bid) Active 1 tablet with a meal Atorvastatin Calcium ND 21878203084 40 MG Orally Once a day Active 1 tablet Breo Ellipta ND 43293291090 100-25 MCG/INH Inhalation Once a day Active 1 puff Nitroglycerin [facility] 37438541757 0.4 MG Sublingual as needed Jun 30, 2017 Active 1 tablet 5 mins apart 3 max then call 911 Results No Known Results Summary Purpose [employer] Submission
--- OUTSIDE RECORDS SUMMARY | 2018-11-12 06:22 | XMS REPORT ---
Author Author Melany Flores Organization [employer] Address Unknown Phone Unavailable Care Team Providers Care Medical Affairs Leader Name Role Phone Melany Flores CP Unavailable Allergies, Adverse Reactions, Alerts Substance Reaction Event Type Lisonpril. Info Not Available Non Drug Allergy Problems Problem Type Condition Code Onset Dates Condition Status Assessment Tobacco abuse Z72.0 Active Assessment HTN (hypertension), benign I10 Active Assessment Dyslipidemia E78.5 Active Assessment Preoperative clearance Z01.818 Active Assessment Other symptoms involving cardiovascular system R09.89 Active Problem Coronary artery disease, angina presence unspecified, unspecified vessel or lesion type, unspecified whether [place] or transplanted heart I25.10 Active Problem HTN (hypertension), benign I10 Active Problem Dyslipidemia E78.5 Active Assessment Coronary artery disease, angina presence unspecified, unspecified vessel or lesion type, unspecified whether [place] or transplanted heart I25.10 Active Assessment S/P angioplasty with stent Z95.9 Active Problem S/P angioplasty with stent Z95.9 Active Assessment Chest pain, unspecified type R07.9 Active Medications Medication Code System Code Instructions Start Date End Date Status Dosage Aspirin [facility] 01719007881 81 MG Orally Once a day Active 1 tablet Lipitor ND 28276170140 40 MG Orally Once a day Active 1 tablet Metformin HCl ND 95672940106 1000 mg Orally twice a day (bid) Active 1 tablet with a meal Metoprolol Succinate ER ND 13052455693 50 MG Orally Once a day Active 1 tablet Plavix ND 77935231629 75 MG Orally Once a day Active 1 tablet Ranolazine ND 0 500 mg every 12 hr Active 1 tablet Ticagrelor [facility] [address]-43 90 MG Orally Twice a day Active 1 tablet NIFEdipine [facility] [address]-36 30 mg daily Active not defined Nitroglycerin [facility] 40016881505 0.4 MG Sublingual as needed Jun 30, 2017 Active 1 tablet 5 mins apart 3 max then call 911 Atorvastatin Calcium ND 14571724813 40 MG Orally Once a day Active 1 tablet Lisinopril [facility] 02805043607 10 MG Orally Once a day Active 1 tablet Breo Ellipta [facility] 18503158892 100-25 MCG/INH Inhalation Once a day Active 1 puff Vital Signs Date/Time: Feb 19, 2018 BMI 32.03 Index Weight 236.2 lbs Height 6 ft 0 in in Cardiac Monitoring Heart Rate 72 /min Blood Pressure Diastolic 82 mm Hg Blood Pressure Systolic 136 mm Hg Results No Known Results Summary Purpose [employer] Submission
--- OUTSIDE RECORDS SUMMARY | 2018-11-12 06:22 | XMS REPORT | Summary of Care ---
Author Author [facility] Organization [facility] Neurosurgery [facility] Address Unknown Phone Unavailable Encounter HQ Matthewr_lizzette(FIN) [id number] Date(s): 03/30/18 - 03/31/18 [facility] Neurosurgery [facility] [address] [place] [address]- [phone] Vital Signs No data available for this [...]
--- OUTSIDE RECORDS SUMMARY | 2018-11-12 06:22 | XMS REPORT | Summary of Care ---
Author Author [facility] Organization [facility] Address Unknown Phone Unavailable Encounter BEN Bradford(FIN) [id number] Date(s): 02/26/18 - 02/26/18 [facility] [address] [place] [address]- Attending Physician: Shon Caldera MD Admitting Physician: Shon Caldera MD Referring Physician: Shon Caldera MD Vital Signs No data available for this [...]
--- OUTSIDE RECORDS SUMMARY | 2018-11-12 06:22 | XMS REPORT ---
Author Author Melany Flores Organization [employer] Address Unknown Phone Unavailable Care Team Providers Care Senior Windows Engineer Name Role Phone Melany Flores CP Unavailable Allergies, Adverse Reactions, Alerts Substance Reaction Event Type Lisonpril. Info Not Available Non Drug Allergy Problems Problem Type Condition Code Onset Dates Condition Status Assessment Preoperative clearance Z01.818 Active Assessment HTN (hypertension), benign I10 Active Assessment Dyslipidemia E78.5 Active Problem Coronary artery disease, angina presence unspecified, unspecified vessel or lesion type, unspecified whether [place] or transplanted heart I25.10 Active Problem HTN (hypertension), benign I10 Active Problem Dyslipidemia E78.5 Active Assessment Coronary artery disease, angina presence unspecified, unspecified vessel or lesion type, unspecified whether [place] or transplanted heart I25.10 Active Assessment S/P angioplasty with stent Z95.9 Active Problem S/P angioplasty with stent Z95.9 Active Medications Medication Code System Code Instructions Start Date End Date Status Dosage Metoprolol Succinate ER ND 64512575585 50 MG Orally Once a day Active 1 tablet Atorvastatin Calcium ND 70961614328 40 MG Orally Once a day Active 1 tablet Gabapentin ND 41947193533 100 MG Orally Three times a day Active 1 capsule Metformin HCl ND 50115144181 1000 mg Orally twice a day (bid) Active 1 tablet with a meal Ranolazine ND 0 500 mg every 12 hr Active 1 tablet NIFEdipine [facility] [address]-12 30 mg daily Active not defined Losartan Potassium ND 48104010938 25 MG Orally Once a day Active 1 tablet Breo Ellipta ND 46147341358 100-25 MCG/INH Inhalation Once a day Active 1 puff Nitroglycerin ND 10512898833 0.4 MG Sublingual as needed Jun 30, 2017 Active 1 tablet 5 mins apart 3 max then call 911 Aspirin ND 22974750424 81 MG Orally Once a day Active 1 tablet Vital Signs Date/Time: Jun 11, 2018 BMI 30.78 Index Weight 227 lbs Height 6 ft 0 in in Cardiac Monitoring Heart Rate 73 /min Blood Pressure Diastolic 79 mm Hg Blood Pressure Systolic 139 mm Hg Results No Known Results Summary Purpose [employer] Submission
--- OUTSIDE RECORDS SUMMARY | 2018-11-12 06:22 | XMS REPORT ---
Author Author Melany Flores Organization [employer] Address Unknown Phone Unavailable Care Team Providers Care Director Of Medical Review Name Role Phone Melany Flores CP Unavailable [...] unspecified vessel or lesion type, unspecified whether [place] or transplanted heart I25.10 Active Problem HTN (hypertension), benign I10 Active Problem Dyslipidemia E78.5 Active Assessment Chest pain, unspecified type R07.9 Active Assessment Coronary artery disease, angina presence unspecified, unspecified vessel or lesion type, unspecified whether [place] or transplanted heart I25.10 Active Problem S/P angioplasty with stent Z95.9 Active Medications Medication Code System Code Instructions Start Date End Date Status Dosage Metformin HCl ND 14085308907 1000 mg Orally twice a day (bid) Active 1 tablet with a meal NIFEdipine [facility] [address]-94 30 mg daily Active not defined Ranolazine ND 0 500 mg every 12 hr Active 1 tablet Breo Ellipta [facility] 37138072036 100-25 MCG/INH Inhalation Once a day Active 1 puff Atorvastatin Calcium ND 50580190331 40 MG Orally Once a day Active 1 tablet Nitroglycerin ND 42440561731 0.4 MG Sublingual as needed Jun 30, 2017 Active 1 tablet 5 mins apart 3 max then call 911 Metoprolol Succinate ER ND 85209877837 50 MG Orally Once a day Active 1 tablet Aspirin ND 69959268973 81 MG Orally Once a day Active 1 tablet Results No Known Results Summary Purpose [employer] Submission
--- OUTSIDE RECORDS SUMMARY | 2018-11-12 06:23 | XMS REPORT | Summary of Care ---
Author Author [facility] Organization [facility] Address Unknown Phone Unavailable Encounter BEN Bradford(KASIA) [id number] Date(s): 06/13/18 - 06/13/18 [facility] [address] [place] [address]- [phone] Discharge Disposition: Home or Self Care Attending Physician: Shon Caldera MD Referring Physician: Shon Caldera MD Vital Signs 1 2 3 Most recent to oldest [Reference Range]: 182.88 cm (06/05/18 9:57 AM) Height 98.2 DegF (06/05/18 10:46 AM) Temperature Oral [96.4-99.1 DegF] 135/67 mmHg (06/13/18 2:30 PM) 123/69 mmHg (06/13/18 1:45 PM) 123/69 mmHg (06/13/18 1:30 PM) Blood Pressure [90-140/60-90 mmHg] 16 BRMIN (06/13/18 2:30 PM) 13 BRMIN *LOW* (06/13/18 1:45 PM) 14 BRMIN (06/13/18 1:30 PM) Respiratory Rate [14-20 BRMIN] 84 bpm (06/05/18 10:46 AM) Peripheral Pulse Rate [60-100 bpm] 103.227 kg (06/05/18 9:57 AM) Weight 30.86 m2 (06/05/18 9:57 AM) Body Mass Index Problem List Condition Effective Dates Status Health [...] Substance Reaction Severity Status lisinopril Active Medications acetaminophen (ANES) 10 mg Route: IV, Drug form: INJ, Start date: 06/13/18 11:23:00 ASSOCIATE CREATIVE DIRECTOR, Stop date: 9 12:23:00 ASSOCIATE CREATIVE DIRECTOR Start Date: 06/13/18 Stop Date: 06/13/18 Status: Completed acetaminophen-hydrocodone 325 mg-5 mg oral tablet 1 tab, PO, Q4H, PRN Pain, # 60 tab, 0 Refill(s), given to patient Start Date: 06/13/18 Stop Date: 06/29/18 Status: Ordered acetaminophen-hydrocodone 325 mg-5 mg oral tablet 1 tab, Route: PO, Drug Form: TAB, Dosing Weight 103.227, kg, Q4H, PRN Pain, Star t date: 06/13/18 13:09:00 ASSOCIATE CREATIVE DIRECTOR, Duration: 30 day, Stop date: 07/13/18 13:08:00 CS T Start Date: 06/13/18 Stop Date: 06/13/18 Status: Discontinued acetaminophen-hydrocodone 325 mg-5 mg oral tablet 1 tab, Route: PO, Drug Form: TAB, Dosing Weight 103.227, kg, Q4H, PRN Pain, Star t date: 06/13/18 13:09:00 ASSOCIATE CREATIVE DIRECTOR, Duration: 30 day, Stop date: 07/13/18 13:08:00 CS T Start Date: 06/13/18 Stop Date: 06/13/18 Status: Discontinued aspirin 81 mg tablet, enteric coated 81 mg=1 tab, PO, Daily, still taking-seeing heart doctor tomorrow, # 90 tab, 3 R efill(s) Start Date: 06/05/18 Stop Date: 06/13/18 Status: Discontinued ceFAZolin (ANES) 1000 mg Route: IV, Drug form: INJ, Start date: 06/13/18 11:08:00 ASSOCIATE CREATIVE DIRECTOR, Stop date: 9 12:08:00 ASSOCIATE CREATIVE DIRECTOR Start Date: 06/13/18 Stop Date: 06/13/18 Status: Completed ceFAZolin (SCIP) 1 gm, Route: IVPB, Drug form: INJ, Q8H, Dosing Weight 103.227, kg, Start date: 0 06/13/18 13:09:00 ASSOCIATE CREATIVE DIRECTOR, Duration: 3 doses or times, Stop date: 06/14/18 0:00:00 CS T, ABX Indication: Surgical Prophylaxis Start Date: 06/13/18 Stop Date: 06/13/18 Status: Discontinued Colace 100 mg oral capsule 100 mg, 1 cap, Route: PO, BID, Dosing Weight 103.227, kg, Start date: 06/13/18 1 7:00:00 ASSOCIATE CREATIVE DIRECTOR, Duration: 30 day, Stop date: 07/13/18 9:00:00 ASSOCIATE CREATIVE DIRECTOR Start Date: 06/13/18 Stop Date: 06/13/18 Status: Discontinued Dilaudid 0.5 mg, Route: IV, Q3H, Dosing Weight 103.227, kg, PRN Pain, Start date: 9 13:09:00 ASSOCIATE CREATIVE DIRECTOR, Duration: 30 day, Stop date: 07/13/18 13:08:00 ASSOCIATE CREATIVE DIRECTOR Start Date: 06/13/18 Stop Date: 06/13/18 Status: Discontinued Dilaudid 1 mg, Route: IV, Q3H, Dosing Weight 103.227, kg, PRN Pain, Start date: 06/13/18 13:09:00 ASSOCIATE CREATIVE DIRECTOR, Duration: 30 day, Stop date: 07/13/18 13:08:00 ASSOCIATE CREATIVE DIRECTOR Start Date: 06/13/18 Stop Date: 06/13/18 Status: Discontinued fentaNYL (ANES) Route: IV, Drug form: INJ, ONCE, Stop date: 06/13/18 11:46:00 ASSOCIATE CREATIVE DIRECTOR Start Date: 06/13/18 Stop Date: 06/13/18 Status: Completed gabapentin PO, 0 Refill(s) Start Date: 06/05/18 Status: Ordered heparin 5000 units/mL injectable solution 5,000 unit, Route: SUB-Q, Drug form: INJ, Q12H, Dosing Weight 103.227, kg, Start date: 06/14/18 8:00:00 ASSOCIATE CREATIVE DIRECTOR, Duration: 30 day, Stop date: 07/13/18 21:00:00 ASSOCIATE CREATIVE DIRECTOR Start Date: 06/14/18 Stop Date: 06/13/18 Status: Canceled Hextend (ANES) 500 mL Route: IV, Drug Form: INJ, Start date: 06/13/18 12:17:00 ASSOCIATE CREATIVE DIRECTOR, Stop date: 9 13:17:00 ASSOCIATE CREATIVE DIRECTOR Start Date: 06/13/18 Stop Date: 06/13/18 Status: Completed Lactated Ringers Injection IV (ANES) 1000 mL Route: IV, Total Volume: 1,000, Start date: 06/13/18 10:40:00 ASSOCIATE CREATIVE DIRECTOR, Stop date: 11:40:00 ASSOCIATE CREATIVE DIRECTOR Start Date: 06/13/18 Stop Date: 06/13/18 Status: Completed Lactated Ringers Injection IV 1,000 mL 1,000 mL, Rate: 25 ml/hr, Infuse over: 40 hr, Route: IV, Dosing Weight 103.227 k g, Total Volume: 1,000, Start date: 06/13/18 8:36:00 ASSOCIATE CREATIVE DIRECTOR, Duration: 1 day, Stop date: 06/14/18 8:35:00 ASSOCIATE CREATIVE DIRECTOR, 2.31, m2 Start Date: 06/13/18 Stop Date: 06/13/18 Status: Discontinued lidocaine (ANES) Route: IV, Drug form: INJ, ONCE, Stop date: 06/13/18 11:46:00 ASSOCIATE CREATIVE DIRECTOR Start Date: 06/13/18 Stop Date: 06/13/18 Status: Completed losartan PO, Daily, 0 Refill(s) Start Date: 06/05/18 Status: Ordered magnesium citrate 300 ml, Route: PO, Drug Form: LIQ, Dosing Weight 103.227, kg, ONCE, PRN Constipa tion, Start date: 06/13/18 13:09:00 ASSOCIATE CREATIVE DIRECTOR Start Date: 06/13/18 Stop Date: 06/13/18 Status: Discontinued metoclopramide (ANES) Route: IV, Drug form: INJ, ONCE, Stop date: 06/13/18 12:36:00 ASSOCIATE CREATIVE DIRECTOR Start Date: 06/13/18 Stop Date: 06/13/18 Status: Completed midazolam (ANES) Route: IV, Drug form: SOLN, ONCE, Stop date: 06/13/18 11:46:00 ASSOCIATE CREATIVE DIRECTOR Start Date: 06/13/18 Stop Date: 06/13/18 Status: Completed ondansetron (ANES) Route: IV, Drug form: INJ, ONCE, Stop date: 06/13/18 11:46:00 ASSOCIATE CREATIVE DIRECTOR Start Date: 06/13/18 Stop Date: 06/13/18 Status: Completed Pepcid 20 mg oral tablet 20 mg, 1 tab, Route: PO, Drug form: TAB, Q12H, Dosing Weight 103.227, kg, Start date: 06/13/18 21:00:00 ASSOCIATE CREATIVE DIRECTOR, Duration: 30 day, Stop date: 07/13/18 9:00:00 ASSOCIATE CREATIVE DIRECTOR Start Date: 06/13/18 Stop Date: 06/13/18 Status: Canceled phenylephrine (ANES) Route: IV, Drug form: INJ, ONCE, Stop date: 06/13/18 11:46:00 ASSOCIATE CREATIVE DIRECTOR Start Date: 06/13/18 Stop Date: 06/13/18 Status: Completed propofol (ANES) Route: IV, Drug form: INJ, ONCE, Stop date: 06/13/18 11:46:00 ASSOCIATE CREATIVE DIRECTOR Start Date: 06/13/18 Stop Date: 06/13/18 Status: Completed ramipril PO, Daily, 0 Refill(s) Start Date: 06/05/18 Status: Ordered rocuronium (ANES) Route: IV, Drug form: INJ, ONCE, Stop date: 06/13/18 11:51:00 ASSOCIATE CREATIVE DIRECTOR Start Date: 06/13/18 Stop Date: 06/13/18 Status: Completed Senokot 2 tab, Route: PO, Dosing Weight 103.227, kg, Daily, Start date: 06/14/18 9:00:00 ASSOCIATE CREATIVE DIRECTOR, Duration: 30 day, Stop date: 07/13/18 9:00:00 ASSOCIATE CREATIVE DIRECTOR Start Date: 06/14/18 Stop Date: 06/13/18 Status: Canceled Sodium Chloride 0.9% IV 1000 mL 1,000 mL, Rate: 75 ml/hr, Infuse over: 13.3 hr, Route: IV, Dosing Weight 103.227 kg, Total Volume: 1,000, Start date: 06/13/18 13:09:00 ASSOCIATE CREATIVE DIRECTOR, Duration: 30 day, S top date: 07/13/18 13:08:00 ASSOCIATE CREATIVE DIRECTOR, 2.31, m2 Start Date: 06/13/18 Stop Date: 06/13/18 Status: Discontinued succinylcholine (ANES) Route: IV, Drug form: INJ, ONCE, Stop date: 06/13/18 11:46:00 ASSOCIATE CREATIVE DIRECTOR Start Date: 06/13/18 Stop Date: 06/13/18 Status: Completed Tylenol 650 mg, Route: PO, Drug form: TAB, Q4H, Dosing Weight 103.227, kg, PRN Pain, Sta rt date: 06/13/18 13:09:00 ASSOCIATE CREATIVE DIRECTOR, Duration: 30 day, Stop date: 07/13/18 13:08:[address] Start Date: 06/13/18 Stop Date: 06/13/18 Status: Discontinued Zofran 4 mg, Route: IV, Drug form: INJ, Q8H, Dosing Weight 103.227, kg, PRN Nausea, Sta rt date: 06/13/18 13:09:00 ASSOCIATE CREATIVE DIRECTOR, Duration: 30 day, Stop date: 07/13/18 13:08:[address] Start Date: 06/13/18 Stop Date: 06/13/18 Status: Discontinued Results BLOOD BANK RESULTS Most recent to 1 oldest [Reference Range]: ABO/Rh O POS *Unknown* (06/05/18 10:32 AM) Antibody Scrn Negative (06/05/18 10:32 AM) ELECTROLYTES Most recent to 1 oldest [Reference Range]: Sodium Lvl [135-145 142 mEq/L mEq/L] (06/05/18 10:32 AM) Potassium Lvl 3.8 mEq/L [3.5-5.1 mEq/L] (06/05/18 10:32 AM) Chloride Lvl [95-109 109 mEq/L mEq/L] (06/05/18 10:32 AM) CO2 [24-32 mEq/L] 24 mEq/L (06/05/18 10:32 AM) AGAP [10.0-20.0 12.8 mEq/L mEq/L] (06/05/18 10:32 AM) CHEM PANEL Most recent to 1 oldest [Reference Range]: Creatinine Lvl 1.16 mg/dL [0.50-1.40 mg/dL] (06/05/18 10:32 AM) eGFR 76 mL/min/1.73m2 1 *NA* (06/05/18 10:32 AM) BUN [7-22 mg/dL] 13 mg/dL (06/05/18 10:32 AM) B/C Ratio [6-25] 11 (06/05/18 10:32 AM) Glucose Lvl [70-99 109 mg/dL mg/dL] *HI* (06/05/18 10:32 AM) Total Protein 7.4 g/dL [6.4-8.4 g/dL] (06/05/18 10:32 AM) Albumin Lvl [3.5-5.0 4.0 g/dL g/dL] (06/05/18 10:32 AM) Globulin [2.7-4.2 3.4 g/dL g/dL] (06/05/18 10:32 AM) A/G Ratio [0.7-1.6] 1.2 (06/05/18 10:32 AM) Calcium Lvl 8.8 mg/dL [8.5-10.5 mg/dL] (06/05/18 10:32 AM) ALT [0-65 unit/L] 20 unit/L (06/05/18 10:32 AM) AST [0-37 unit/L] 11 unit/L (06/05/18 10:32 AM) Alk Phos [39-136 72 unit/L unit/L] (06/05/18 10:32 AM) Bili Total [0.2-1.3 0.8 mg/dL mg/dL] (06/05/18 10:32 AM) 1Result Comment: The eGFR is calculated using the [...] from the National Kidney Disease Education Program ( NKDEP) which additionally recommends that when the eGFR is used in patients with extremes of body mass index for purposes of drug dosing, the eGFR should be mul tiplied by the estimated BMI. SPECIAL CHEMISTRY Most recent to 1 oldest [Reference Range]: Hgb A1C [<=5.6 %] 8.7 % *HI* (06/05/18 10:38 AM) HEMATOLOGY Most recent to 1 oldest [Reference Range]: WBC [3.7-10.4 K/CMM] 8.4 K/CMM (06/05/18 10:32 AM) RBC [4.70-6.10 4.26 M/CMM M/CMM] *LOW* (06/05/18 10:32 AM) Hgb [14.0-18.0 g/dL] 12.2 g/dL *LOW* (06/05/18 10:32 AM) Hct [42.0-54.0 %] 36.5 % *LOW* (06/05/18 10:32 AM) MCV [80.0-94.0 fL] 85.7 fL (06/05/18 10:32 AM) MCH [27.0-31.0 pg] 28.7 pg (06/05/18 10:32 AM) MCHC [32.0-36.0 33.5 g/dL g/dL] (06/05/18 10:32 AM) RDW [11.5-14.5 %] 15.2 % *HI* (06/05/18 10:32 AM) MPV [7.4-10.4 fL] 9.5 fL (06/05/18 10:32 AM) Platelet [133-450 174 K/CMM K/CMM] (06/05/18 10:32 AM) Segs [45.0-75.0 %] 65.2 % (06/05/18 10:32 AM) Lymphocytes 24.6 % [20.0-40.0 %] (06/05/18 10:32 AM) Monocytes [2.0-12.0 8.2 % %] (06/05/18 10:32 AM) Eosinophils [0.0-4.0 1.5 % %] (06/05/18 10:32 AM) Basophils [0.0-1.0 0.5 % %] (06/05/18 10:32 AM) Neutrophils # 5.5 K/CMM [1.5-8.1 K/CMM] (06/05/18 10:32 AM) Lymphocytes # 2.1 K/CMM [1.0-5.5 K/CMM] (06/05/18 10:32 AM) Monocytes # [0.0-0.8 0.7 K/CMM K/CMM] (06/05/18 10:32 AM) Eosinophils # 0.1 K/CMM [0.0-0.5 K/CMM] (06/05/18 10:32 AM) PT [12.0-14.7 13.1 seconds seconds] (06/05/18 10:32 AM) INR [0.85-1.17] 1.01 (06/05/18 10:32 AM) PTT [22.9-35.8 27.1 seconds seconds] (06/05/18 10:32 AM) Immunizations No data available for this section [...] Reg Smoking Cessation Counseling No1 entered on: 06/13/18 1Patient states he stopped smoking 05/2017 Assessment and Plan Extracted from: Title: Clinical Document Author: Shon Caldera MD Date: 06/13/18 Neurosurgery Discharge Summary Admit Date: 06/13/2018 Discharge Date: 06/13/2018 Diagnosis: LEFT L3-L4, L4-L5 lateral recess stenosis Procedure: LEFT L3-L4, L4-L5 laminotomy Surgeon: Werner Hospital Course: Patient admitted, underwent above procedure, tolerated well. Ambulated, urinated, tolerated oral POs, safe to discharge home in stable condition PE: Preop AFVSS IPsQGATEHL [id number] L44+54-4- Postop AFVSS IPsQGATEHL [id number] L44+54-4- c/d/i PLAN: Follow-up in [address] Caldera at [phone]
--- OUTSIDE RECORDS SUMMARY | 2018-11-12 06:23 | XMS REPORT | Summary of Care ---
Author Author [facility] Neurosurgery [facility] Organization [facility] Neurosurgery [facility] Address Unknown Phone Unavailable Encounter HQ Sirena_lizzette(FIN) [id number] Date(s): 03/05/18 - 03/05/18 [facility] Neurosurgery [facility] [address] [place] [address]- [phone] Attending Physician: Shon Caldera MD Referring Physician: Pepito English MD Vital Signs No data available for [...]
--- OUTSIDE RECORDS SUMMARY | 2018-11-12 06:23 | XMS REPORT | Summary of Care ---
Author Author [facility] Organization [facility] Address Unknown Phone Unavailable Encounter BEN Bradford(KASIA) [id number] Date(s): 01/16/18 - 01/16/18 [facility] [address] [place] [address]- Encounter Diagnosis Radiculopathy, lumbar region (Final) - 01/20/18 Spinal stenosis, lumbar region without neurogenic claudication (Final) - Other intervertebral disc degeneration, lumbar region (Final) - Fusion of spine, lumbosacral region (Final) - Discharge Disposition: Home or Self Care Attending Physician: Melly iMller MD Admitting Physician: Melly Miller MD Referring Physician: Melly Miller MD Vital Signs No data available for [...]
--- OUTSIDE RECORDS SUMMARY | 2018-11-12 06:23 | XMS REPORT | Summary of Care ---
Author Author [facility] Organization [facility] Address Unknown Phone Unavailable Encounter BEN Bradford(KASIA) [id number] Date(s): 08/03/18 - 08/03/18 [facility] [address] [place] [address]- [phone] Discharge Disposition: Home or Self Care Attending Physician: Shon Caldera MD Referring Physician: Pepito English MD Vital Signs Most recent to 1 oldest [Reference Range]: Height 182.88 cm (08/03/18 11:29 AM) Temperature Oral 97.8 DegF [96.4-99.1 DegF] (08/03/18 11:29 AM) Blood Pressure 117/75 mmHg [90-140/60-90 mmHg] (08/03/18 11:29 AM) Peripheral Pulse 66 bpm Rate [60-100 bpm] (08/03/18 11:29 AM) Weight 100 kg (08/03/18 11:29 AM) Body Mass Index 29.9 m2 (08/03/18 11:29 AM) Problem List Condition Effective Dates Status Health [...]
--- OUTSIDE RECORDS SUMMARY | 2018-11-12 06:23 | XMS REPORT | Summary of Care ---
Author Author [facility] Organization [facility] Address Unknown Phone Unavailable Encounter HQ Sirena_lizzette(FIN) [id number] Date(s): 06/28/18 - 06/29/18 [facility] [address] [place] [phone] Vital Signs No data available for this [...]
--- OUTSIDE RECORDS SUMMARY | 2018-11-12 06:23 | XMS REPORT | Summary of Care ---
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 Alcohol Current, Frequency: 1-2 times per month. Smoking Status Former smoker; Type: Cigarettes; Ready to change: No; Concerns about tobacco use in household: No; Exposure to Tobacco Smoke None; Cigarette Smoking Last 365 Days No; Reg Smoking Cessation Counseling No1 entered on: 02/06/18 1Patient states he stopped smoking 05/2017 Assessment and Plan No data available for this section
--- OUTSIDE RECORDS SUMMARY | 2018-11-12 06:23 | XMS REPORT | Summary of Care ---
Author Author [facility] Organization [facility] Address Unknown Phone Unavailable Encounter BEN Bradford(KASIA) [id number] Date(s): 02/06/18 - 02/06/18 [facility] [address] [place] [address]- [phone] Discharge Disposition: Home or Self Care Attending Physician: Shon Caldrea MD Referring Physician: Pepito English MD Vital Signs Most recent to 1 oldest [Reference Range]: Height 182.88 cm (02/06/18 12:26 PM) Temperature Oral 97.7 DegF [96.4-99.1 DegF] (02/06/18 12:26 PM) Blood Pressure 122/81 mmHg [90-140/60-90 mmHg] (02/06/18 12:26 PM) Peripheral Pulse 103 bpm Rate [60-100 bpm] *HI* (02/06/18 12:26 PM) Weight 106.165 kg (02/06/18 12:26 PM) Body Mass Index 31.74 m2 (02/06/18 12:26 PM) Problem List Condition Effective Dates Status [...] Substance Reaction Severity Status lisinopril Active Medications atorvastatin 40 mg oral tablet 40 mg=1 tab, PO, Bedtime, # 30 tab, 0 Refill(s) Start Date: 02/06/18 Status: Ordered levocetirizine 5 mg oral tablet 5 mg=1 tab, PO, Bedtime, PRN as needed for allergy symptoms, # 30 tab, 0 Refill( s) Start Date: 02/06/18 Stop Date: 03/08/18 Status: Ordered metFORMIN 1000 mg oral tablet, extended release 1,000 mg=1 tab, PO, BID, # 60 tab, 0 Refill(s) Start Date: 02/06/18 Status: Ordered metoprolol succinate 50 mg oral capsule, extended release 50 mg=1 cap, PO, Daily, 0 Refill(s) Start Date: 02/06/18 Status: Ordered NIFEdipine 10 mg oral capsule 10 mg=1 cap, PO, Daily, 0 Refill(s) Start Date: 02/06/18 Status: Ordered nitroglycerin 0.4 mg sublingual tablet 0.4 mg=1 tab, SL, Q5Min, PRN Chest pain, Give up to 3 doses. Call 911 if pain pe rsists., # 100 tab, 0 Refill(s) Start Date: 02/06/18 Status: Ordered Ranexa 500 mg oral tablet, extended release 500 mg=1 tab, PO, BID, # 60 tab, 0 Refill(s) Start Date: 02/06/18 Status: Ordered tamsulosin 0.4 mg oral capsule 0.4 mg=1 cap, PO, Daily, # 30 cap, 0 Refill(s) Start Date: 02/06/18 Status: Ordered ticagrelor 90 mg oral tablet 90 mg=1 tab, PO, BID, # 180 tab, 3 Refill(s) Start Date: 02/06/18 Stop Date: 06/13/18 Status: Discontinued Results No data available for this section [...]
--- OUTSIDE RECORDS SUMMARY | 2018-11-12 06:23 | XMS REPORT | Summary of Care ---
Author Author [facility] Organization [facility] Address Unknown Phone Unavailable Encounter HQ Sirena_lizzette(FIN) [id number] Date(s): 06/28/18 - 06/29/18 [facility] [address] [address] In[address] [facility] [address] [place] [phone] Vital Signs No data available for this [...]
--- OUTSIDE RECORDS SUMMARY | 2018-11-12 06:24 | XMS REPORT ---
Author Author [facility] Address Unknown Phone Unavailable Care Team Providers Care Pharmacogeneticist Name Role Phone LUCIAN SALDAÑA Unavailable Unavailable Problems This patient has no known problems. Allergies, Adverse Reactions, Alerts This patient has no known allergies or adverse reactions. Medications This patient has no known medications. Results Test Description Test Time Test Comments Text Results Atomic Results Result Comments POCT-GLUCOSE METER 2017-06-11 12:22:00 POC-GLUCOSE METER (BEAKER) (test zusr=8745) 114 mg/dL 70-110 [address]ED AT [address] [address] POCT-GLUCOSE [id number] 07:47:00* Test Item Value Reference Range Comments POC-GLUCOSE METER (BEAKER) (test qptn=4899) 115 mg/dL 70-110 TESTED AT [place] [id number] [facility] [address] [id number] 07:15:00* Test Item Value Reference Range Comments PARTIAL THROMBOPLASTIN TIME (BEAKER) (test cozy=733) 81.3 seconds 22.5-36.0 [id number] 05:41:00* Test Item Value Reference Range Comments MAGNESIUM (BEAKER) (test awth=650) 2.2 mg/dL 1.6-2.6 Specimen slightly hemolyzed BASIC METABOLIC [id number] 05:41:00* Test Item Value Reference Range Comments SODIUM (BEAKER) (test merq=113) 138 meq/L 136-145 POTASSIUM (BEAKER) (test mstt=458) 3.9 meq/L 3.5-5.1 Specimen slightly hemolyzed CHLORIDE (BEAKER) (test btzr=299) 104 meq/L 98-107 CO2 (BEAKER) (test ajia=911) 24 meq/L 22-29 BLOOD UREA NITROGEN (BEAKER) (test goqw=072) 11 mg/dL 7-21 CREATININE (BEAKER) (test sghp=282) 0.74 mg/dL 0.57-1.25 Specimen slightly hemolyzed GLUCOSE RANDOM (BEAKER) (test pwks=362) 116 mg/dL 70-105 CALCIUM (BEAKER) (test ilhn=911) 9.5 mg/dL 8.4-10.2 EGFR (BEAKER) (test qmoh=3294) 129 mL/min/1.73 sq m ESTIMATED GFR IS NOT ACCURATE CREATININE CLEARANCE IN PREDICTING GLOMERULAR FILTRATION RATE. ESTIMATED GFR IS NOT APPLICABLE FOR DIALYSIS PATIENTS. CBC W/PLT COUNT & AUTO [id number] 04:51:00* Test Item Value Reference Range Comments WHITE BLOOD CELL COUNT (BEAKER) (test kjth=524) 9.8 K/ L 3.5-10.5 RED BLOOD CELL COUNT (BEAKER) (test gkpe=893) 4.66 M/ L 4.63-6.08 HEMOGLOBIN (BEAKER) (test abzq=450) 13.6 GM/DL 13.7-17.5 HEMATOCRIT (BEAKER) (test mcvz=770) 40.5 % 40.1-51.0 MEAN CORPUSCULAR VOLUME (BEAKER) (test nxxq=075) 86.9 fL 79.0-92.2 MEAN CORPUSCULAR HEMOGLOBIN (BEAKER) (test nqwf=885) 29.2 pg 25.7-32.2 MEAN CORPUSCULAR HEMOGLOBIN CONC (BEAKER) (test zjmo=155) 33.6 GM/DL 32.3-36.5 RED CELL DISTRIBUTION WIDTH (BEAKER) (test zuhb=022) 15.1 % 11.6-14.4 PLATELET COUNT (BEAKER) (test ameq=205) 230 K/CU MM 150-450 MEAN PLATELET VOLUME (BEAKER) (test flaz=400) 11.1 fL 9.4-12.4 NUCLEATED RED BLOOD CELLS (BEAKER) (test ptuj=097) 0 /100 WBC 0-0 NEUTROPHILS RELATIVE PERCENT (BEAKER) (test nmbb=582) 65 % LYMPHOCYTES RELATIVE PERCENT (BEAKER) (test zeyi=522) 26 % MONOCYTES RELATIVE PERCENT (BEAKER) (test mzsc=706) 8 % EOSINOPHILS RELATIVE PERCENT (BEAKER) (test cbpd=793) 1 % BASOPHILS RELATIVE PERCENT (BEAKER) (test ozqf=955) 0 % NEUTROPHILS ABSOLUTE COUNT (BEAKER) (test rmbf=382) 6.28 K/ L 1.78-5.38 LYMPHOCYTES ABSOLUTE COUNT (BEAKER) (test reow=132) 2.49 K/ L 1.32-3.57 MONOCYTES ABSOLUTE COUNT (BEAKER) (test vqeo=589) 0.80 K/ L 0.30-0.82 EOSINOPHILS ABSOLUTE COUNT (BEAKER) (test xkmz=385) 0.11 K/ L 0.04-0.54 BASOPHILS ABSOLUTE COUNT (BEAKER) (test atca=245) 0.04 K/ L 0.01-0.08 IMMATURE GRANULOCYTES-RELATIVE PERCENT (BEAKER) (test nhbl=0513) 0 % 0-1 [id number] 01:00:00* Test Item Value Reference Range Comments PARTIAL THROMBOPLASTIN TIME (BEAKER) (test zmwc=539) 75.8 seconds 22.5-36.0 POCT-GLUCOSE [id number] 22:48:00* Test Item Value Reference Range Comments POC-GLUCOSE METER (BEAKER) (test krer=1406) 119 mg/dL 70-110 [address]ED AT [address] [address] HEMOGLOBIN [id number] 20:59:00* Test Item Value Reference Range Comments HEMOGLOBIN A1C (BEAKER) (test upaj=118) 6.2 % 4.3-6.1 POCT-GLUCOSE [id number] 17:48:00* Test Item Value Reference Range Comments POC-GLUCOSE METER (BEAKER) (test ewmi=0382) 172 mg/dL 70-110 TESTED AT [address] [address] [id number] 17:19:00* Test Item Value Reference Range Comments POTASSIUM (BEAKER) (test sgsw=956) 4.0 meq/L 3.5-5.1 [id number] 17:19:00* Test Item Value Reference Range Comments MAGNESIUM (BEAKER) (test zszl=922) 1.7 mg/dL 1.6-2.6 [id number] 17:18:00* Test Item Value Reference Range Comments PARTIAL THROMBOPLASTIN TIME (BEAKER) (test cffn=244) 59.5 seconds 22.5-36.0 HEMOGLOBIN [id number] 14:33:00* Test Item Value Reference Range Comments HEMOGLOBIN A1C (BEAKER) (test rwwl=876) 6.4 % 4.3-6.1 [id number] 12:33:00* Test Item Value Reference Range Comments PARTIAL THROMBOPLASTIN TIME (BEAKER) (test dudl=394) 47.0 seconds 22.5-36.0 POCT-GLUCOSE [id number] 08:34:00* Test Item Value Reference Range Comments POC-GLUCOSE METER (BEAKER) (test cxzr=8523) 131 mg/dL 70-[address] [facility] [address] [facility] [address] [id number] 06:40:00* Test Item Value Reference Range Comments PROTIME (BEAKER) (test hczv=006) 14.4 seconds 11.7-14.7 INR (BEAKER) (test phaz=096) 1.1 <=5.9 PARTIAL THROMBOPLASTIN TIME (BEAKER) (test fypy=750) 49.5 seconds 22.5-36.0 RECOMMENDED COUMADIN/WARFARIN INR THERAPY RANGESSTANDARD DOSE: 2.0 - 3.0 Inclu minesh: PROPHYLAXIS for venous thrombosis, systemic embolization; TREATMENT for julio ous thrombosis and/or pulmonary embolus.HIGH RISK: Target INR is 2.5-3.5 for pat ients with mechanical heart valves.TROPONIN [id number] 03:18:00* Test Item Value Reference Range Comments TROPONIN I (BEAKER) (test bbzb=754) 0.25 ng/mL 0.00-0.03 Troponin I (TnI) levels must be interpreted in the context of the presenting sym ptoms and the clinical findings. Elevated TnI levels indicate myocardial damage, but are not specific for ischemic heart disease. Elevated TnI levels are seen in patients with other cardiac conditions (including myocarditis and congestive h eart failure), and slight TnI elevations occur in patients with other conditions , including sepsis, renal failure, acidosis, acute neurological disease, and per sistent tachyarrhythmia.CREATINE KINASE (CK), TOTAL AND [id number] 03:02:00* Test Item Value Reference Range Comments CREATINE KINASE TOTAL (BEAKER) (test vxpn=327) 88 U/L 29-200 CREATINE KINASE-MB (BEAKER) (test vdqu=301) 1.9 ng/mL 0.0-6.6 CREATINE KINASE-MB INDEX (BEAKER) (test ordg=736) 2.2 % CK-MB Reference Range:<6.7 Normal6.7-10.0 Borderline>10.0 Abnormal BASIC METABOLIC [id number] 02:54:00* Test Item Value Reference Range Comments SODIUM (BEAKER) (test wgfk=744) 139 meq/L 136-145 POTASSIUM (BEAKER) (test puac=654) 3.6 meq/L 3.5-5.1 CHLORIDE (BEAKER) (test xsne=833) 106 meq/L 98-107 CO2 (BEAKER) (test odrb=953) 20 meq/L 22-29 BLOOD UREA NITROGEN (BEAKER) (test rlee=495) 16 mg/dL 7-21 CREATININE (BEAKER) (test tdou=417) 0.80 mg/dL 0.57-1.25 GLUCOSE RANDOM (BEAKER) (test lxby=227) 148 mg/dL 70-105 CALCIUM (BEAKER) (test mvgl=762) 9.1 mg/dL 8.4-10.2 EGFR (BEAKER) (test ygdl=4087) 118 mL/min/1.73 sq m ESTIMATED GFR IS NOT ACCURATE CREATININE CLEARANCE IN PREDICTING GLOMERULAR FILTRATION RATE. ESTIMATED GFR IS NOT APPLICABLE FOR DIALYSIS PATIENTS. CBC W/PLT COUNT & AUTO [id number] 02:17:00* Test Item Value Reference Range Comments WHITE BLOOD CELL COUNT (BEAKER) (test icse=706) 11.3 K/ L 3.5-10.5 RED BLOOD CELL COUNT (BEAKER) (test cwam=287) 4.76 M/ L 4.63-6.08 HEMOGLOBIN (BEAKER) (test bkwp=081) 13.7 GM/DL 13.7-17.5 HEMATOCRIT (BEAKER) (test pdso=178) 40.8 % 40.1-51.0 MEAN CORPUSCULAR VOLUME (BEAKER) (test gmzp=368) 85.7 fL 79.0-92.2 MEAN CORPUSCULAR HEMOGLOBIN (BEAKER) (test iqpd=834) 28.8 pg 25.7-32.2 MEAN CORPUSCULAR HEMOGLOBIN CONC (BEAKER) (test ssdi=088) 33.6 GM/DL 32.3-36.5 RED CELL DISTRIBUTION WIDTH (BEAKER) (test eyqo=511) 15.0 % 11.6-14.4 PLATELET COUNT (BEAKER) (test teyd=050) 252 K/CU MM 150-450 MEAN PLATELET VOLUME (BEAKER) (test aosv=065) 11.0 fL 9.4-12.4 NUCLEATED RED BLOOD CELLS (BEAKER) (test cebv=559) 0 /100 WBC 0-0 NEUTROPHILS RELATIVE PERCENT (BEAKER) (test yavo=670) 69 % LYMPHOCYTES RELATIVE PERCENT (BEAKER) (test lrbn=203) 21 % MONOCYTES RELATIVE PERCENT (BEAKER) (test yyjk=875) 8 % EOSINOPHILS RELATIVE PERCENT (BEAKER) (test bcwx=251) 1 % BASOPHILS RELATIVE PERCENT (BEAKER) (test cfpv=809) 0 % NEUTROPHILS ABSOLUTE COUNT (BEAKER) (test szkl=915) 7.86 K/ L 1.78-5.38 LYMPHOCYTES ABSOLUTE COUNT (BEAKER) (test tkmx=625) 2.39 K/ L 1.32-3.57 MONOCYTES ABSOLUTE COUNT (BEAKER) (test embh=572) 0.92 K/ L 0.30-0.82 EOSINOPHILS ABSOLUTE COUNT (BEAKER) (test nvtb=681) 0.07 K/ L 0.04-0.54 BASOPHILS ABSOLUTE COUNT (BEAKER) (test pnpm=368) 0.05 K/ L 0.01-0.08 IMMATURE GRANULOCYTES-RELATIVE PERCENT (BEAKER) (test ctqu=3801) 0 % 0-1 TROPONIN [id number] 22:57:00* Test Item Value Reference Range Comments TROPONIN I (BEAKER) (test xocd=494) 0.29 ng/mL 0.00-0.03 Troponin I (TnI) levels must be interpreted in the context of the presenting sym ptoms and the clinical findings. Elevated TnI levels indicate myocardial damage, but are not specific for ischemic heart disease. Elevated TnI levels are seen in patients with other cardiac conditions (including myocarditis and congestive h eart failure), and slight TnI elevations occur in patients with other conditions , including sepsis, renal failure, acidosis, acute neurological disease, and per sistent tachyarrhythmia.CREATINE KINASE (CK), TOTAL AND [id number] 22:54:00* Test Item Value Reference Range Comments CREATINE KINASE TOTAL (BEAKER) (test eafv=346) 77 U/L 29-200 CREATINE KINASE-MB (BEAKER) (test apmf=060) 2.0 ng/mL 0.0-6.6 CREATINE KINASE-MB INDEX (BEAKER) (test xoss=353) 2.6 % CK-MB Reference Range:<6.7 Normal6.7-10.0 Borderline>10.0 Abnormal [id number] 22:44:00* Test Item Value Reference Range Comments PROTIME (BEAKER) (test uhzr=814) 14.0 seconds 11.7-14.7 INR (BEAKER) (test dpjl=866) 1.1 <=5.9 PARTIAL THROMBOPLASTIN TIME (BEAKER) (test pjou=730) 45.6 seconds 22.5-36.0 RECOMMENDED COUMADIN/WARFARIN INR THERAPY RANGESSTANDARD DOSE: 2.0 - 3.0 Inclu minesh: PROPHYLAXIS for venous thrombosis, systemic embolization; TREATMENT for julio ous thrombosis and/or pulmonary embolus.HIGH RISK: Target INR is 2.5-3.5 for pat ients with mechanical heart valves.LIPID [id number] 19:40:00* Test Item Value Reference Range Comments TRIGLYCERIDES (BEAKER) (test ilqv=176) 72 mg/dL Specimen slightly hemolyzed CHOLESTEROL (BEAKER) (test xege=140) 167 mg/dL Specimen slightly hemolyzed HDL CHOLESTEROL (BEAKER) (test tjhl=051) 70 mg/dL LDL CHOLESTEROL CALCULATED (BEAKER) (test zeda=681) 83 mg/dL Triglyceride Reference Range: Low Risk <150 Borderline 150-199 High Risk 200-499 Very High Risk >=500Cholesterol Reference Range: Low Risk <200 Borderline 200-239 High Risk >240HDL Cholesterol Reference Range: Low Risk >=60 High Risk <40LDL Cholesterol Reference Range: Optimal <100 Near Optimal 100-129 Borderline 130-159 High 160-189 Very High >=190 TROPONIN [id number] 17:21:00* Test Item Value Reference Range Comments TROPONIN I (BEAKER) (test dply=205) 0.39 ng/mL 0.00-0.03 Troponin I (TnI) levels must be interpreted in the context of the presenting sym ptoms and the clinical findings. Elevated TnI levels indicate myocardial damage, but are not specific for ischemic heart disease. Elevated TnI levels are seen in patients with other cardiac conditions (including myocarditis and congestive h eart failure), and slight TnI elevations occur in patients with other conditions , including sepsis, renal failure, acidosis, acute neurological disease, and per sistent tachyarrhythmia.CREATINE KINASE (CK), TOTAL AND [id number] 17:14:00* Test Item Value Reference Range Comments CREATINE KINASE TOTAL (BEAKER) (test katd=410) 108 U/L 29-200 CREATINE KINASE-MB (BEAKER) (test slfg=834) 2.7 ng/mL 0.0-6.6 CREATINE KINASE-MB INDEX (BEAKER) (test imsk=357) 2.5 % CK-MB Reference Range:<6.7 Normal6.7-10.0 Borderline>10.0 AbnormalCBC W/PLT COUNT & AUTO [id number] 16:48:00* Test Item Value Reference Range Comments WHITE BLOOD CELL COUNT (BEAKER) (test zlut=917) 15.5 K/ L 3.5-10.5 RED BLOOD CELL COUNT (BEAKER) (test iqyh=608) 5.07 M/ L 4.63-6.08 HEMOGLOBIN (BEAKER) (test syna=638) 14.6 GM/DL 13.7-17.5 HEMATOCRIT (BEAKER) (test bqsk=853) 44.7 % 40.1-51.0 MEAN CORPUSCULAR VOLUME (BEAKER) (test gptj=206) 88.2 fL 79.0-92.2 MEAN CORPUSCULAR HEMOGLOBIN (BEAKER) (test cpjm=791) 28.8 pg 25.7-32.2 MEAN CORPUSCULAR HEMOGLOBIN CONC (BEAKER) (test hlzr=449) 32.7 GM/DL 32.3-36.5 RED CELL DISTRIBUTION WIDTH (BEAKER) (test udwp=510) 15.2 % 11.6-14.4 PLATELET COUNT (BEAKER) (test chbz=382) 256 K/CU MM 150-450 MEAN PLATELET VOLUME (BEAKER) (test pogh=422) 10.8 fL 9.4-12.4 NUCLEATED RED BLOOD CELLS (BEAKER) (test wact=778) 0 /100 WBC 0-0 NEUTROPHILS RELATIVE PERCENT (BEAKER) (test emos=871) 80 % LYMPHOCYTES RELATIVE PERCENT (BEAKER) (test rnlu=510) 13 % MONOCYTES RELATIVE PERCENT (BEAKER) (test afbe=102) 6 % EOSINOPHILS RELATIVE PERCENT (BEAKER) (test qmsa=358) 0 % BASOPHILS RELATIVE PERCENT (BEAKER) (test amoa=970) 0 % NEUTROPHILS ABSOLUTE COUNT (BEAKER) (test qaon=897) 12.32 K/ L 1.78-5.38 LYMPHOCYTES ABSOLUTE COUNT (BEAKER) (test tljh=719) 2.06 K/ L 1.32-3.57 MONOCYTES ABSOLUTE COUNT (BEAKER) (test nvah=171) 0.87 K/ L 0.30-0.82 EOSINOPHILS ABSOLUTE COUNT (BEAKER) (test qtgv=540) 0.03 K/ L 0.04-0.54 BASOPHILS ABSOLUTE COUNT (BEAKER) (test ttos=225) 0.06 K/ L 0.01-0.08 IMMATURE GRANULOCYTES-RELATIVE PERCENT (BEAKER) (test enur=7619) 1 % 0-1 RAD, CHEST, 1 VIEW, NON [id number] 13:58:00Reason for exam:->CHEST PAINFINAL REPORT CLINICAL HISTORY: CHEST PAIN TECHNIQUE: 1 view of the chest COMPARISON: None IMPRESSION: There are no focal infiltrates or pleural effusions. The cardiomediastinal silhouette is within normal limits for size. The visualized bones are intact. Signed: Vikki Abad Verified Da te/Time: 06/09/2017 13:58:34 Reading Location: [facility] C013 Consult Reading Caterina hong C METABOLIC [id number] 13:22:00* Test Item Value Reference Range Comments SODIUM (BEAKER) (test pxra=179) 141 meq/L 136-145 POTASSIUM (BEAKER) (test airp=240) 5.2 meq/L 3.5-5.1 CHLORIDE (BEAKER) (test okem=991) 104 meq/L 98-107 CO2 (BEAKER) (test kgzz=664) 26 meq/L 22-29 BLOOD UREA NITROGEN (BEAKER) (test xadg=323) 16 mg/dL 7-21 CREATININE (BEAKER) (test lwzt=207) 0.90 mg/dL 0.57-1.25 GLUCOSE RANDOM (BEAKER) (test izvw=689) 105 mg/dL 70-105 CALCIUM (BEAKER) (test qpfo=727) 10.2 mg/dL 8.4-10.2 EGFR (BEAKER) (test dgsn=8917) mL/min/1.73 sq m INSUFFICIENT CLINICAL DATA TO CALCULATE ESTIMATED GFR. B-TYPE NATRIURETIC FACTOR (BNP)2017-06-09 13:12:00* Test Item Value Reference Range Comments B-TYPE NATRIURETIC PEPTIDE (BEAKER) (test kzuf=232) 12 pg/mL 0-100 CREATINE KINASE (CK), TOTAL AND [id number] 13:11:00* Test Item Value Reference Range Comments CREATINE KINASE TOTAL (BEAKER) (test xtzd=416) 106 U/L 29-200 CREATINE KINASE-MB (BEAKER) (test zdck=687) 2.1 ng/mL 0.0-6.6 CREATINE KINASE-MB INDEX (BEAKER) (test yhny=570) 2.0 % CK-MB Reference Range:<6.7 Normal6.7-10.0 Borderline>10.0 Abnormal TROPONIN [id number] 13:11:00* Test Item Value Reference Range Comments TROPONIN I (BEAKER) (test fnrt=472) 0.11 ng/mL 0.00-0.03 Troponin I (TnI) levels must be interpreted in the context of the presenting sym ptoms and the clinical findings. Elevated TnI levels indicate myocardial damage, but are not specific for ischemic heart disease. Elevated TnI levels are seen in patients with other cardiac conditions (including myocarditis and congestive h eart failure), and slight TnI elevations occur in patients with other conditions , including sepsis, renal failure, acidosis, acute neurological disease, and per sistent tachyarrhythmia.[id number] 13:10:00* Test Item Value Reference Range Comments MAGNESIUM (BEAKER) (test gdaz=761) 1.8 mg/dL 1.6-2.6 [id number] 13:04:00* Test Item Value Reference Range Comments PROTIME (BEAKER) (test pmgz=543) 13.7 seconds 11.7-14.7 INR (BEAKER) (test veod=301) 1.1 <=5.9 PARTIAL THROMBOPLASTIN TIME (BEAKER) (test melh=647) 25.4 seconds 22.5-36.0 RECOMMENDED COUMADIN/WARFARIN INR THERAPY RANGESSTANDARD DOSE: 2.0 - 3.0 Inclu minesh: PROPHYLAXIS for venous thrombosis, systemic embolization; TREATMENT for julio ous thrombosis and/or pulmonary embolus.HIGH RISK: Target INR is 2.5-3.5 for pat ients with mechanical heart valves.
[2018-11-12 08:00] LABS: BASOPHILS # (AUTO) 0.1 (0.0-0.1); BASOPHILS % 0.5 % (0.0-1.0); EOSINOPHILS # (AUTO) 0.1 (0.0-0.4); EOSINOPHILS % 0.8 % (0.0-6.0); HEMATOCRIT 46.5 % (38.2-49.6); HEMOGLOBIN 15.2 g/dL (14.0-18.0); LYMPHOCYTES # (AUTO) 2.4 (1.0-3.2); LYMPHOCYTES % 26.5 % (18.0-39.1); MEAN CORPUSCULAR HEMOGLOBIN 28.2 pg (28-32); MEAN CORPUSCULAR HGB CONC 32.7 g/dL (31-35); MEAN CORPUSCULAR VOLUME 86.3 fL (81-99); MONOCYTES # (AUTO) 0.9 (0.2-0.8); MONOCYTES % 9.2 % (4.4-11.3); NEUTROPHILS # (AUTO) 5.8 (2.1-6.9); NEUTROPHILS % 62.8 % (38.7-80.0); PLATELET COUNT 253 x10e3/uL (140-360); RED BLOOD COUNT 5.39 x10e6/uL (4.3-5.7); RED CELL DISTRIBUTION WIDTH 14.5 % (11.7-14.4)
[2018-11-12 10:30] VITALS: BP 125/83
--- NOTE | 2018-11-12 11:37 | Operative Report ---
DATE OF PROCEDURE: 11/12/2018 SURGEON: Kwame De La Cruz MD PROCEDURE: Colonoscopy and polypectomy. INDICATIONS FOR COLONOSCOPY: Colorectal cancer screening. MEDICATIONS: The patient was done under MAC, please see anesthesiologist's note. PROCEDURE IN DETAIL: With the patient in left lateral decubitus position, the flexible fiberoptic Olympus colonoscope was inserted into the rectum with ease and advanced all the way to the cecum, it was then withdrawn slowly. Mucosa overlying the cecum appeared to be within normal limits. Of note, diverticular disease was noted throughout the colon. Ascending colon other than for diverticular disease appeared to be within normal limits. Three polyps were snared from the transverse colon. One polyp was snared from the descending colon. The sigmoid other than for diverticular disease appeared to be within normal limits. The rectum was within normal limits. The scope was then retroflexed into the distal rectum and small internal hemorrhoids were noted, none of which was actively bleeding. The scope was then straightened out, it was subsequently withdrawn. The patient tolerated the procedure well. IMPRESSION: 1. Henley diverticulosis. 2. Transverse colon polyps x3, snared. 3. Descending colon polyp x1, snared. 4. Internal hemorrhoids, none actively bleeding. PLAN: Follow up histology. Initiate high-fiber, low-fat diet. Initiate high-fiber supplement. The patient might benefit from a followup colonoscopy in 3 years. Kwame De La Cruz MD [facility]/[place] /[id number] cc: Dr. Wayne English
== END | disposition home or self-care (01) ==
LOC: ENDO 06:16
PROVIDERS: ATTEND Internal Medicine Gastroenterology
DX: Z12.11 Encounter for screening for malignant neoplasm of colon (principal); D12.3 Benign neoplasm of transverse colon; D12.4 Benign neoplasm of descending colon; K57.30 Diverticulosis of large intestine without perforation or abscess without bleeding; K64.8 Other hemorrhoids; J44.9 Chronic obstructive pulmonary disease, unspecified; I10 Essential (primary) hypertension; I25.10 Atherosclerotic heart disease of native coronary artery without angina pectoris; E11.9 Type 2 diabetes mellitus without complications; Z88.8 Allergy status to other drugs, medicaments and biological substances; Z79.84 Long term (current) use of oral hypoglycemic drugs; Z95.5 Presence of coronary angioplasty implant and graft; Z87.891 Personal history of nicotine dependence
CPT/HCPCS: 36415; 45385; 82948; 85025; 88305; 93005; J2250; J2704; 45378; 45384; J3010